=== PATIENT | male | born 1950 ===

== ENCOUNTER 2017-05-21 06:40 | Day surgery (SDC) | payer OTHER ==
[2017-05-13 12:45] VITALS: BMI 37.1
[2017-05-21] MEDS ORDERED: Nitroglycerin 50mg in D5W 50 MG/250 ML BOTTLE IV ONE (06:47)
[2017-05-21] MEDS ORDERED: Lidocaine 2% Inj (20ml) ONE (06:47)
[2017-05-21] MEDS ORDERED: Famotidine 20mg/50ml 20 MG/50 ML BAG IVPB ONE (06:54)
[2017-05-21] MEDS ORDERED: DiphenhydrAMINE 50 mg/ml Inj ONE (06:54)
[2017-05-21 07:22] LABS: ADD MANUAL DIFF? NO
[2017-05-21 07:26] LABS: BASO # 0.02 K/mm3 (0.0-2.0); BASO % 0.3 % (0.0-3.0); EOS # 0.3 (0.0-0.7); EOS % 4.2 % (1.5-5.0); GRAN # 3.43 (1.4-6.5); GRAN % 55.8 % (50.0-68.0); HEMATOCRIT 47.2 % (42.0-52.0); LYMPH % 32.6 % (22.0-35.0); MEAN CELL VOLUME 85.2 fL (80.0-105.0); MEAN CORPUSCULAR HEMOGLOBIN 29.4 pg (25.0-35.0); MEAN CORPUSCULAR HGB CONC 34.5 g/dl (31.0-37.0); MEAN PLATELET VOLUME 9.6 fl (7.0-11.0); MONO # 0.4 (0.1-0.6); MONO % 7.1 % (1.0-6.0); PLATELET COUNT 202 10^3/uL (120.0-450.0); RED CELL DISTRIBUTION WIDTH 14.4 % (11.5-14.5); WHITE BLOOD COUNT 6.2 10^3/ul (4.5-11.0)
[2017-05-21] MEDS ORDERED: Midazolam 2 MG/2 ML VIAL ONE (07:30)
[2017-05-21 07:36] LABS: INR 1.03 (0.93-1.08); PARTIAL THROMBOPLASTIN TIME 28.8 Seconds (23.7-30.8)
[2017-05-21 07:42] LABS: BLOOD UREA NITROGEN 15 mg/dL (7-21); CALCIUM 9.1 mg/dL (8.4-10.5); CARBON DIOXIDE 25 mmol/L (21-33); CHLORIDE 101 mmol/L (95-110); CHOLESTEROL 128 mg/dL (130-200); GFR AFRICAN-AMERICAN > 60; GLUCOSE,RANDOM 95 mg/dL (70-110); POTASSIUM 3.8 mmol/L (3.6-5.0); SODIUM 136 mmol/L (132-148)
[2017-05-21] MEDS ORDERED: Iodixanol 320 mg/ml 150 ml Bottle IV ONE (07:44)
[2017-05-21 07:52] VITALS: O2SAT 99
[2017-05-21] MEDS ORDERED: Iodixanol 320 MG/ML 100 ML BOTTLE IV ONE (08:17)
[2017-05-21] MEDS ORDERED: Iohexol 350mgl/ml 50 ML ONE (08:17)
[2017-05-21] MEDS ORDERED: Eptifibatide 20 mg/10mL Inj IVP ONE (08:18)
[2017-05-21] MEDS ORDERED: Potassium Chloride 20 mEq ER Tab PO STA (08:57)
[2017-05-21] MEDS ORDERED: Sodium Chloride 0.9% 1,000 ML IV SCH (09:00)
[2017-05-21 11:42] LABS: ADD MANUAL DIFF? NO
[2017-05-21 11:45] LABS: BASO # 0.01 K/mm3 (0.0-2.0); BASO % 0.2 % (0.0-3.0); EOS % 0.3 % (1.5-5.0); GRAN # 5.06 (1.4-6.5); GRAN % 83.3 % (50.0-68.0); LYMPH # 0.9 (1.2-3.4); MEAN CELL VOLUME 85.4 fL (80.0-105.0); MEAN CORPUSCULAR HEMOGLOBIN 29.3 pg (25.0-35.0); MEAN CORPUSCULAR HGB CONC 34.3 g/dl (31.0-37.0); MEAN PLATELET VOLUME 9.5 fl (7.0-11.0); MONO # 0.1 (0.1-0.6); MONO % 1.2 % (1.0-6.0); PLATELET COUNT 196 10^3/uL (120.0-450.0); RED CELL DISTRIBUTION WIDTH 14.3 % (11.5-14.5); WHITE BLOOD COUNT 6.1 10^3/ul (4.5-11.0)
[2017-05-21 11:52] LABS: BLOOD UREA NITROGEN 15 mg/dL (7-21); CALCIUM 9.2 mg/dL (8.4-10.5); CARBON DIOXIDE 25 mmol/L (21-33); CHLORIDE 100 mmol/L (98-107); GFR AFRICAN-AMERICAN > 60; GLUCOSE,RANDOM 149 mg/dL (70-110); SODIUM 136 mmol/L (132-148)
--- NOTE | 2017-05-21 12:01 | CARD ---
APPROVED REPORT EKG Measurement Heart [id number] <Conclusion> Normal sinus rhythm Possible Inferior infarct, age undetermined Abnormal ECG
[2017-05-21 12:16] VITALS: BP 111/67; PULSE 84; RESP 16; TEMP 98
--- NOTE | 2017-05-21 12:19 | CARD ---
APPROVED REPORT Procedure(s) performed: Left Heart Catheterization PTCA with Stenting of Dital Circumflex HISTORY The patient is a 66 year-old male with a history of : most recent EF: 58%. (EF Method: RADIONUCLIDE), renal failure without dialysis, previous diagnostic cath, previous PCI (The PCI date was 11/23/20092014), hypertension , dyslipidemia . INDICATION The indication(s) include : positive stress test, Infero-lateral Ischemia. CASE TECHNIQUE The patient was brought electively to the Cardiac Catheterization Laboratory in a fasting state and was prepped and draped in a sterile manner. The left wrist was infiltrated with 2% Lidocaine subcutaneous anesthesia. A 6 Fr Glidesheath (Radial) sheath was inserted into the left radial artery without difficulty. Coronary angiography was performed using coronary diagnostic catheters. The left coronary system was accessed and visualized with a Diagnostic ,5 Fr JL 3.5 catheter. The right coronary system was accessed and visualized with a Diagnostic ,5 Fr JR 4 catheter. The left ventricle was accessed and visualized with a 5 Fr Pigtail 145 (Angled) catheter. Left ventricular/Aortic Valve gradient assessed on pullback. Left ventriculogram was performed in [place]ON projection. Closure device was deployed with a Fr TR Band (Large) without any complications. The patient tolerated the procedure well and there were no complications associated with the procedure. Vessel Analysis The patient's coronary anatomy is co-dominant. The left main coronary artery is a large size vessel with diffuse calcification noted throughout this vessel and without significant stenosis. The left main bifurcates to the left anterior descending and circumflex. The left anterior descending artery is a medium size vessel with diffuse calcification noted throughout this vessel and without significant stenosis. There is a 30-40% stenosis in the mid segment. The first diagonal branch is a medium size vessel with diffuse calcification noted throughout this vessel and without significant stenosis. The circumflex artery is a large size vessel with diffuse calcification noted throughout this vessel and with significant stenosis. There is a 80% stenosis in the distal segment. Patent Stent in Mid Cx. The third obtuse marginal branch is a medium size vessel with diffuse calcification noted throughout this vessel and without significant stenosis. The right coronary artery is a large size vessel with diffuse calcification noted throughout this vessel and without significant stenosis. There is a 40% stenosis in the mid segment. Left Ventricle The left ventricle is Borderline enlarged in size with low normal contractility. The left ventricular ejection fraction is estimated to be 50-55%. The left ventricular end diastolic pressure is 20-25 mmHg. There was no gradient across the aortic valve upon pullback. PCI Technique Lesion Percutaneous coronary intervention was performed on the distal circumflex artery segment. The lesion stenosis prior to intervention was 80% with APARNA 2 flow. A 6 Fr JL 3.5 Guide Catheter was used to engage the ostium. BALLOON DILATION A Balloon catheter 2.5 x 10 mm Sprinter RX was inserted and inflated up to maría for seconds. STENT DEPLOYMENT A drug-eluting stent 2.75 x 14 mm Resolute EDUIN was inserted and inflated up to 16.00atm for 20seconds. Final angiography reveals 0 % stenosis with APARNA 3 flow. Conclusion Single Vessel CAD involving Distal CX, 80% Low Normal LV Ef-50-55%, EDP-20-25 Recommendations Daily ASA with Plavix for at least one year Aggressive Medical TherapyCardiac Risk Reduction Program Weight Loss Reduction Program Add Diuretics low as tolerated. CC; DRs. Stevan Ibarra/ Allison
[2017-05-21] MEDS ORDERED: Bacitracin 500 Units/gm Oint Foilpak UD ONE (13:13)
== END 2017-05-21 15:19 | disposition home or self-care (01) ==
LOC: CATH 06:40 → 2RSO 08:56 → CATH 15:19
PROVIDERS: ATTEND Internal Medicine Cardiovascular Disease
DX: I25.10 Atherosclerotic heart disease of native coronary artery without angina pectoris (principal); E78.00 Pure hypercholesterolemia, unspecified; I12.9 Hypertensive chronic kidney disease with stage 1 through stage 4 chronic kidney disease, or unspecified chronic kidney disease; N18.9 Chronic kidney disease, unspecified; E78.5 Hyperlipidemia, unspecified
CPT/HCPCS: 36415; 80048; 80061; 85025; 85175; 85610; 85730; 86850; 86900; 93005; 93458; 99152; 99153; C1725; C1769 ×2; C1874; C1887 ×3; C9600; J1200; J1327; J1644 ×2; J1940 ×2; J2250; J2930; J3010; J7040 ×2; Q9967

== ENCOUNTER 2017-07-15 12:52 | Inpatient (IN) | payer OTHER ==
[2017-07-15 12:58] VITALS: BMI 36.0
[2017-07-15] MEDS ORDERED: Sodium Chloride 0.9% 1,000 ML IV STA (13:23)
[2017-07-15] MEDS ORDERED: cefTRIAXone 1 gm 1 GM/100 ML BAG IV STA (13:25)
--- NOTE | 2017-07-15 13:35 | ED PDOC ---
Arrival/HPI - General Chief Complaint: Male Genitourinary Time Seen by Provider: 07/15/17 13:06 Historian: Patient - History of Present Illness Narrative History of Present Illness (Text): 07/15/17 13:18 A 66 year old male, whose past medical history includes renal stones, hypertension, CAD, and cardiac stent, presents to the emergency department complaining of right-side back pain and dysuria for 2 days. Patient reports yesterday he visited a doctor for his symptoms. He was prescribed macrobid but notes no relief. Patient mentions he has also been taking Pyridium. Patient notes fever that began yesterday, but denies of any nausea, vomiting, diarrhea, abdominal pain, shortness of breath, cough, chest pain, hematuria, groin pain, or any other complaints. PMD: Dr. Ibarra Time/Duration: < week (2 days) Symptom Onset: Sudden Symptom Course: Unchanged Activities at Onset: Rest, Light Context: Home Past Medical History - Provider Review Nursing Documentation Reviewed: Yes - Infectious Disease Hx of Infectious Diseases: None - Cardiac Hx Cardiac Disorders: Yes Hx VT: Yes Hx Hypertension: Yes Hx Pacemaker: No Other/Comment: 3 stents - Pulmonary Hx Respiratory Disorders: No - Neurological Hx Neurological Disorder: No Hx Paralysis: No - HEENT Hx HEENT Disorder: Yes Other/Comment: history of bilateral corneal transplants 2007. glasses - Renal Hx Kidney Stones: Yes (2009) - Endocrine/Metabolic Hx Endocrine Disorders: No - Hematological/Oncological Hx Blood Transfusions: No Hx Blood Transfusion Reaction: No - Integumentary Hx Dermatological Disorder: No - Musculoskeletal/Rheumatological Hx Musculoskeletal Disorders: Yes Hx Arthritis: Yes (L shoulder) - Gastrointestinal Hx Gastrointestinal Disorders: No - Genitourinary/Gynecological Hx Genitourinary Disorders: Yes (UTI 06/25/15) - Psychiatric Hx Emotional Abuse: No Hx Physical Abuse: No Hx Substance Use: No - Surgical History Hx Cardiac Catheterization: Yes Hx Coronary Stent: Yes (04/2017, x3) Other/Comment: corneal transplant - Anesthesia Hx Anesthesia: Yes Hx Anesthesia Reactions: No Hx Malignant Hyperthermia: No - Suicidal Assessment Feels Threatened In Home Enviroment: No Family/Social History - Physician Review Nursing Documentation Reviewed: Yes Family/Social History: No Known Family HX Smoking Status: Never Smoked Hx Alcohol Use: No Hx Substance Use: No Allergies/Home Meds Allergies/Adverse Reactions: Allergies shellfish derived Allergy (Intermediate, Verified 07/15/17 12:57) GENERALIZED RASH Home Medications: Home Meds Medication Instructions Recorded Confirmed Aspirin [Aspirin Chewable] 81 mg PO QAM 08/21/16 07/15/17 Atorvastatin [Lipitor] 40 mg PO QPM 08/21/16 07/15/17 Clopidogrel [Plavix] 75 mg PO QAM 08/21/16 07/15/17 Losartan [Cozaar] 25 mg PO QAM 08/21/16 07/15/17 Metoprolol Tartrate 25 mg PO QAM 08/21/16 07/15/17 Nckpr-0-Nqge Ethyl Esters 1 GM 2 gm PO BID 08/21/16 07/15/17 [Lovaza] Ciprofloxacin [Cipro] 250 mg PO BID 07/15/17 07/15/17 Phenazopyridine [Pyridium] 100 mg PO DAILY 07/15/17 07/15/17 Review of Systems - Physician Review All systems were reviewed & negative as marked: Yes - Review of Systems Constitutional: Fevers (began yesterday). absent: Night Sweats Respiratory: absent: SOB, Cough Cardiovascular: absent: Chest Pain Gastrointestinal: absent: Abdominal Pain, Diarrhea, Nausea, Vomiting Genitourinary Male: Dysuria. absent: Hematuria, Urinary Output Changes, Other ( no groin pain) Musculoskeletal: Back Pain (left-side back pain) Neurological: Headache (mild not sudden onset) Physical Exam Vital Signs Reviewed: Yes Vital Signs Temp Pulse Resp BP Pulse Ox 07/15/17 15:16 99 H 18 130/79 95 07/15/17 13:09 101.7 F H 07/15/17 13:02 100.1 F H 111 H 19 132/86 95 Temperature: Afebrile Blood Pressure: Normal Pulse: Tachycardic Respiratory Rate: Normal Appearance: Positive for: Well-Appearing Pain Distress: None Mental Status: Positive for: Alert and Oriented X 3 - Systems Exam Head: Present: Atraumatic, Normocephalic Pupils: Present: PERRL Conjunctiva: Present: Normal Mouth: Present: Moist Mucous Membranes Pharnyx: Present: Normal. No: ERYTHEMA, EXUDATE, TONSILS ENLARGED Neck: Present: Normal Range of Motion Respiratory/Chest: Present: Clear to Auscultation, Good Air Exchange Cardiovascular: Present: Regular Rate and Rhythm, Normal S1, S2. No: Murmurs Abdomen: Present: Normal Bowel Sounds. No: Tenderness, Distention, Peritoneal Signs Genitourinary Male: No: Circumcised Penis, Testicle Tenderness Back: Present: Normal Inspection Upper Extremity: Present: Normal Inspection. No: Cyanosis, Edema Lower Extremity: Present: Normal Inspection. No: Edema Neurological: Present: GCS=15, CN II-XII Intact, Speech Normal Skin: Present: Warm, Dry, Normal Color. No: Rashes Psychiatric: Present: Alert, Oriented x 3, Normal Insight, Normal Concentration Medical Decision Making ED Course and Treatment: 07/15/17 13:25 Impression: 66 year old male with left-side back pain and dysuria, already on abx. Exam is unremarkable. Patient with fever of 101.7. Plan: -- EKG -- Abd/Pelvis CT -- Chest X-ray -- Labs -- Blood Culture -- Urine Culture -- Tylenol -- Rocephin -- IV Fluids -- Urinalysis -- Reassess and disposition Prior Visits: Notes and results from previous visits were reviewed. 06/25/2015 for burning discomfort to penis/dysuria and some lower back /flank discomfort. Patient was admitted for observation. Progress Notes: 07/15/17 14:13 EKG: Ordered, reviewed, and independently interpreted the EKG. Rate : 98 BPM Rhythm : NSR Interpretation : No ST-segment elevations or depressions, no T-wave inversions, normal intervals. Comparison : No previous EKG for comparison. 07/15/2017 14:39 Abd/Pelvis CT FINDINGS: LOWER THORAX: 7 mm nodule in the right lower lobe in the azygoesophageal recess. LIVER: Unremarkable. No gross lesion or ductal dilatation. GALLBLADDER AND BILE DUCTS: Unremarkable PANCREAS: Unremarkable. No gross lesion or ductal dilatation. SPLEEN: Unremarkable. ADRENALS: Unremarkable. No mass. KIDNEYS AND URETERS: Unremarkable. No hydroneprosis. No solid mass. VASCULATURE: Unremarkable. No aortic aneurysm. BOWEL: Unremarkable. No obstruction. No gross mural thickening. APPENDIX: Unremarkable. Normal appendix. PERITONEUM: Unremarkable. No free fluid. No free air. LYMPH NODES: Unremarkable. No enlarged lymph nodes. BLADDER: Unremarkable. REPRODUCTIVE: The prostate is enlarged measuring 6 x 7 cm. BONES: no acute fracture. OTHER FINDINGS: None. IMPRESSION: No evidence of renal or ureteral stone. Enlarged prostate. 7 mm nodule in the right lower lobe in the azygoesophageal recess. Dictated By: Jcarlos Katz MD 07/15/2017 14:39 Chest X-Ray FINDINGS: LUNGS: No active pulmonary disease. No infiltrate PLEURA: No significant pleural effusion identified. No pneumothorax apparent. CARDIOVASCULAR: Normal. OSSEOUS STRUCTURES: Thoracic spondylosis VISUALIZED UPPER ABDOMEN: Normal. OTHER FINDINGS: None. IMPRESSION: No active disease. Specifically no infiltrate Dictator : Ctay Camargo V. 07/15/17 15:30 Patient with noted history with fever of 101.7 and 3/4 SIRS criteria; labs with WBC of 16.4K and lactic acid of 1.9, so does not fit code sepsis criteria. Will need iv antibiotics, having worsened on oral antibiotics. Labs show UTI as well. Spoke with Dr. Greenwood, who said to admit to the hospitalist service. Discussed with Dr. Horn for admission to the hospitalist service. - Lab Interpretations Lab Results: 07/15/17 13:30 07/15/17 13:30 Lab Results 07/15/17 13:30: Sodium 136, Chloride 97 L, Potassium 3.9, Carbon Dioxide 28, Anion Gap 15, BUN 9, Creatinine 0.9, Est GFR ( Amer) > 60, Est GFR (Non- Af Amer) > 60, Random Glucose 131 H, Calcium 9.5, Phosphorus 2.9, Magnesium 2.0 , Total Bilirubin 1.2, AST 24, ALT 42, Alkaline Phosphatase 58, Lactate Dehydrogenase 357, Total Creatine Kinase 82, Troponin I < 0.01, Total Protein 7.4, Albumin 4.4, Globulin 2.9, Albumin/Globulin Ratio 1.5, Lipase 47 07/15/17 13:30: pO2 25 L, VBG pH 7.36, VBG pCO2 55.0, VBG HCO3 31.1 H, VBG Total CO2 32.8 H, VBG O2 Sat (Calc) 56.7, VBG Base Excess 3.8 H, VBG Potassium 4.1, Sodium 135.0, Chloride 97.0 L, Glucose 137 H, Lactate 1.9, FiO2 21.0, Venous Blood Potassium 4.1 07/15/17 13:30: Urine Color Yellow, Urine Appearance Sl cloudy, Urine pH 7.0, Ur Specific [place] <= 1.005, Urine Protein Negative, Urine Glucose (UA) Negative, Urine Ketones Negative, Urine Blood Moderate H, Urine Nitrate Positive H, Urine Bilirubin Negative, Urine Urobilinogen 1.0 H, Ur Leukocyte Esterase Moderate H, Urine RBC 1 - 3, Urine WBC 15 - 20, Ur Epithelial Cells 6 - 8, Urine Bacteria Trace 07/15/17 13:30: PT 11.6, INR 1.07, APTT 31.6 H 07/15/17 13:30: WBC 16.4 H D, RBC 5.61, Hgb 16.6, Hct 48.0, MCV 85.6, MCH 29.6, MCHC 34.6, RDW 13.8, Plt Count 184, MPV 9.7, Gran % 85.0 H, Lymph % (Auto) 7.0 L , [place] % (Auto) 7.8 H, Eos % (Auto) 0.1 L, Baso % (Auto) 0.1, Gran # 13.92 H, Lymph # 1.1 L, [place] # 1.3 H, Eos # 0.0, Baso # 0.02, ESR 4 I have reviewed the lab results: Yes - RAD Interpretation Radiology Orders: 07/15/17 13:25 ABD & PELVIS W/O PO OR IV CONT [CT] Stat CHEST TWO VIEWS (PA/LAT) [RAD] Stat - Medication Orders Current Medication Orders: Aspirin (Aspirin Chewable) 81 mg PO QAM [facility] Atorvastatin Calcium (Lipitor) 40 mg PO QPM [facility] Clopidogrel Bisulfate (Plavix) 75 mg PO QAM [facility] Losartan Potassium (Cozaar) 25 mg PO QAM [facility] Metoprolol Tartrate (Lopressor) 25 mg PO QAM [facility] Mrqdc-4-Qvho Ethyl Esters (Lovaza) 2 gm PO BID [facility] Phenazopyridine HCl (Pyridium) 100 mg PO DAILY [facility] Discontinued Medications Acetaminophen (Tylenol 325mg Tab) 975 mg PO STAT STA Stop: 07/15/17 13:24 Last Admin: 07/15/17 13:48 Dose: 975 mg Sodium Chloride (Sodium Chloride 0.9%) 1,000 mls @ 999 mls/hr IV .Q1H1M STA Stop: 07/15/17 14:23 Last Admin: 07/15/17 13:48 Dose: 999 mls/hr Ceftriaxone Sodium (Rocephin 1 Gram Ivpb) 1 gm in 100 mls @ 200 mls/hr IV ONCE STA PRN Reason: Protocol Stop: 07/15/17 13:54 Last Admin: 07/15/17 13:49 Dose: 200 mls/hr Non-Formulary Medication (Metoprolol Tartrate [Metoprolol Tartrate]) 25 mg PO QAM GABRIEL - Scribe Statement The provider has reviewed the documentation as recorded by the Winsome Bolanos Provider Scribe Attestation: All medical record entries made by the Winsome were at my direction and personally dictated by me. I have reviewed the chart and agree that the record accurately reflects my personal performance of the history, physical exam, medical decision making, and the department course for this patient. I have also personally directed, reviewed, and agree with the discharge instructions and disposition. Disposition/Present on Arrival - Present on Arrival Any Indicators Present on Arrival: No History of DVT/PE: No History of Uncontrolled Diabetes: No Urinary Catheter: No History of Decub. Ulcer: No History Surgical Site Infection Following: None - Disposition Have Diagnosis and Disposition been Completed?: Yes Diagnosis: Urinary tract infection, Sepsis, Fever, Leukocytosis Disposition: HOSPITALIZED Disposition Time: 14:30 Patient Plan: Admission Condition: FAIR
[2017-07-15 13:54] LABS: VENOUS BLOOD GAS BASE EXCESS 3.8 mmol/L (0.0-2.0); VENOUS BLOOD PH 7.36 (7.32-7.43)
[2017-07-15 14:05] LABS: ALB/GLOB RATIO 1.5 (1.1-1.8); ALKALINE PHOSPHATASE 58 U/L (38-133); ALT/SGPT 42 U/L (7-56); AST/SGOT 24 U/L (15-59); BILIRUBIN,TOTAL 1.2 mg/dL (0.2-1.3); BLOOD UREA NITROGEN 9 mg/dL (7-21); CALCIUM 9.5 mg/dL (8.4-10.5); CARBON DIOXIDE 28 mmol/L (21-33); CHLORIDE 97 mmol/L (98-107); GFR AFRICAN-AMERICAN > 60; GLUCOSE,RANDOM 131 mg/dL (70-110); INR 1.07 (0.93-1.08); LIPASE 47 U/L (23-300); PARTIAL THROMBOPLASTIN TIME 31.6 Seconds (23.7-30.8); PHOSPHOROUS 2.9 mg/dL (2.5-4.5); POTASSIUM 3.9 mmol/L (3.6-5.0); SODIUM 136 mmol/L (132-148); TOTAL PROTEIN 7.4 g/dL (5.8-8.3)
[2017-07-15 14:11] LABS: URINE BILIRUBIN NEGATIVE (NEGATIVE); URINE BLOOD MODERATE (NEGATIVE); URINE GLUCOSE (UA) NEGATIVE (NEGATIVE); URINE KETONE NEGATIVE (NEGATIVE); URINE LEUKOCYTE ESTERASE MODERATE Leu/uL (NEGATIVE); URINE PROTEIN NEGATIVE mg/dL (<30 mg/dL)
[2017-07-15 14:13] LABS: URINE APPEARANCE SL CLOUDY (CLEAR); URINE COLOR YELLOW (YELLOW)
[2017-07-15 14:15] LABS: URINE BACTERIA TRACE (NEG); URINE WBC 15 - 20 /hpf (0-6)
[2017-07-15 14:21] LABS: BASO # 0.02 K/mm3 (0.0-2.0); BASO % 0.1 % (0.0-3.0); EOS % 0.1 % (1.5-5.0); GRAN # 13.92 (1.4-6.5); LYMPH # 1.1 (1.2-3.4); MEAN CELL VOLUME 85.6 fl (80.0-105.0); MEAN CORPUSCULAR HEMOGLOBIN 29.6 pg (25.0-35.0); MEAN CORPUSCULAR HGB CONC 34.6 g/dl (31.0-37.0); MEAN PLATELET VOLUME 9.7 fl (7.0-11.0); MONO # 1.3 (0.1-0.6); MONO % 7.8 % (1.0-6.0); RED CELL DISTRIBUTION WIDTH 13.8 % (11.5-14.5); WHITE BLOOD COUNT 16.4 10^3/ul (4.5-11.0)
[2017-07-15 14:22] LABS: TROPONIN I < 0.01 ng/mL
--- NOTE | 2017-07-15 14:41 | RAD ---
HISTORY: fever COMPARISON: CT chest abdomen and pelvis 06/07/2013 TECHNIQUE: Chest PA and lateral FINDINGS: LUNGS: No active pulmonary disease. No infiltrate PLEURA: No significant pleural effusion identified. No pneumothorax apparent. CARDIOVASCULAR: Normal. OSSEOUS STRUCTURES: Thoracic spondylosis VISUALIZED UPPER ABDOMEN: Normal. OTHER FINDINGS: None. IMPRESSION: No active disease. Specifically no infiltrate
--- NOTE | 2017-07-15 14:41 | CT ---
PROCEDURE: CT Abdomen and Pelvis without intravenous contrast HISTORY: R flank pain; ho renal stones; fever COMPARISON: None. TECHNIQUE: Without contrast.. Contrast Dose: Radiation dose: Total exam DLP = 1264 mGy-cm. This CT exam was performed using one or more of the following dose reduction techniques: Automated exposure control, adjustment of the mA and/or kV according to patient size, and/or use of iterative reconstruction technique. FINDINGS: LOWER THORAX: 7 mm nodule in the right lower lobe in the azygoesophageal recess LIVER: Unremarkable. No gross lesion or ductal dilatation. GALLBLADDER AND BILE DUCTS: Unremarkable. PANCREAS: Unremarkable. No gross lesion or ductal dilatation. SPLEEN: Unremarkable. ADRENALS: Unremarkable. No mass. KIDNEYS AND URETERS: Unremarkable. No hydronephrosis. No solid mass. VASCULATURE: Unremarkable. No aortic aneurysm. BOWEL: Unremarkable. No obstruction. No gross mural thickening. APPENDIX: Unremarkable. Normal appendix. PERITONEUM: Unremarkable. No free fluid. No free air. LYMPH NODES: Unremarkable. No enlarged lymph nodes. BLADDER: Unremarkable. REPRODUCTIVE: The prostate is enlarged measuring 6 x 7 cm BONES: No acute fracture. OTHER FINDINGS: None. IMPRESSION: No evidence of renal or ureteral stone. Enlarged prostate 7 mm nodule in the right lower lobe in the azygoesophageal recess
--- NOTE | 2017-07-15 16:45 | CP.PCM.HP ---
History of Present Illness - History of Present Illness History of Present Illness: CC: Burning with Urination HPI: Mr. Alanis is a 66 year old male with a past medical history significant for nephrolithiasis, HTN, HLD, CAD with 3 EDUIN who presented with a chief complaint of burning with urination for three days duration. Patient states that when he awoke on Thursday, his first void of the day was associated with "extreme burning" at the tip of his penis. Later that day at work, patient states that he began to experience lower back pain, urinary urgency, frequency and continued burning sensation. These symptoms continued throughout Thursday night, preventing patient from sleeping, so patient went to see his PMD of Thursday and was sent home with Ciprofloxacin and Phenazopyridine, which was confirmed with prescription bottles in the ED. Patient reports that he experienced no relief of his symptoms with this regimen and decided to come in to the ED today for further evaluation. In the ED, patient was found to have a leukocytosis of 16.4 on CBC and a UA showed moderate blood, positive nitrates, moderate leukocyte esterase, 15-20 WBC's and trace amounts of bacteria. A CT abdomen/pelvis done in the ED showed no nephrolithiasis, an enlarged prostate and a 7mm pulmonary nodule in the RLL in the azygoesphageal recess. Currently, patient reports that his pain has resolved a moderate amount. Patient endorses low back pain, urinary frequency, urinary urgency and burning with urination. Patient denies fever, chills, weight loss, headache, changes in vision, dysphagia, neck stiffness, chest pain, palpitations, shortness of breath , cough, pleurisy, abdominal pain, N/V, diarrhea, constipation, numbness/ tingling/weakness of any extremity, hematuria or any new rashes. PMH: Nephrolithiasis, HTN, HLD, CAD with 3 EDUIN (latest in 05/[address] 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 Allergies: Shrimp Home Medications: As per MAR Present on Admission - Present on Admission Any Indicators Present on Admission: No Review of Systems - Review of Systems Review of Systems: Please refer to HPI Past Patient History - Infectious Disease Hx of Infectious Diseases: None - Past Social History Smoking Status: Never Smoked - CARDIAC Hx Cardiac Disorders: Yes Hx Heart Attack: Yes Hx Hypertension: Yes Hx Pacemaker: No Other/Comment: 3 stents - PULMONARY Hx Respiratory Disorders: No - NEUROLOGICAL Hx Neurological Disorder: No Hx Paralysis: No - HEENT Hx HEENT Problems: Yes Other/Comment: history of bilateral corneal transplants 2007. glasses - RENAL Hx Kidney Stones: Yes (2009) - ENDOCRINE/METABOLIC Hx Endocrine Disorders: No - HEMATOLOGICAL/ONCOLOGICAL Hx Blood Transfusions: No Hx Blood Transfusion Reaction: No - INTEGUMENTARY Hx Dermatological Problems: No - MUSCULOSKELETAL/RHEUMATOLOGICAL Hx Musculoskeletal Disorders: Yes Hx Arthritis: Yes (L shoulder) - GASTROINTESTINAL Hx Gastrointestinal Disorders: No - GENITOURINARY/GYNECOLOGICAL Hx Genitourinary Disorders: Yes (UTI 06/25/15) - PSYCHIATRIC Hx Emotional Abuse: No Hx Physical Abuse: No Hx Substance Use: No - SURGICAL HISTORY Hx Cardiac Catheterization: Yes Hx Coronary Stent: Yes (04/2017, x3) Other/Comment: corneal transplant - ANESTHESIA Hx Anesthesia: Yes Hx Anesthesia Reactions: No Hx Malignant Hyperthermia: No Meds Allergies/Adverse Reactions: Allergies Allergy/AdvReac Type Severity Reaction Status Date / Time shellfish derived Allergy Intermediate GENERALIZED Verified 07/15/17 12:57 RASH Physical Exam - Constitutional Appears: Non-toxic, No Acute Distress - Head Exam Head Exam: ATRAUMATIC, NORMOCEPHALIC - Eye Exam Eye Exam: EOMI, Normal appearance, PERRL - ENT Exam ENT Exam: Mucous Membranes Moist, Normal Exam, Normal Oropharynx - Neck Exam Neck exam: Positive for: Full Rom, Normal Inspection. Negative for: Lymphadenopathy, Tenderness - Respiratory Exam Respiratory Exam: Clear to Auscultation Bilateral, NORMAL BREATHING PATTERN. absent: Chest Wall Tenderness, Rales, Rhonchi, Wheezes, Respiratory Distress - Cardiovascular Exam Cardiovascular Exam: REGULAR RHYTHM, RRR, +S1, +S2. absent: Tachycardia, Diastolic murmur, Systolic Murmur - GI/Abdominal Exam GI & Abdominal Exam: Normal Bowel Sounds, Soft. absent: Distended, Firm, Guarding, Tenderness - Exam Exam: Bladder Distension - Extremities Exam Extremities exam: Positive for: normal capillary refill, normal inspection, pedal pulses present. Negative for: calf tenderness, pedal edema - Back Exam Back exam: absent: CVA tenderness (L), CVA tenderness (R), paraspinal tenderness , vertebral tenderness - Neurological Exam Neurological exam: Alert, Normal Gait, Oriented x3 - Psychiatric Exam Psychiatric exam: Normal Affect, Normal Mood - Skin Skin Exam: Dry, Intact, Normal Color, Warm Results - Vital Signs Recent Vital Signs: Last Vital Signs Temp 99.3 F 07/15/17 16:06 Pulse 99 H 07/15/17 15:16 Resp 18 07/15/17 15:16 BP 130/79 07/15/17 15:16 Pulse Ox 95 07/15/17 15:16 - Labs Result Diagrams: 07/15/17 13:30 07/15/17 13:30 - EKG Data EKG Interpreted by: Myself EKG shows normal: Sinus rhythm Assessment & Plan - Assessment and Plan (Free Text) Assessment: 66 year old male with a past medical history significant for nephrolithiasis, HTN, HLD, CAD with 3 EDUIN who presented with a chief complaint of burning with urination for three days duration Plan: 1. Sepsis -SIRS Criteria: Leukocytosis (16.4), febrile (Rectal temperature of 101.7), and tachycardia (111 bpm) -Source of Infection: UTI per UA -Lactic Acid: 1.9 -Continue Rocephin 1gm IVP Q24H (received one dose in ED) -Given one time infusion of 3000ml NS over 30 minutes (Sepsis protocol) -IVF: Normal Saline at 100mls/hr to be given after infusion, as most recent ECHO in 01/09 showed an EF of 51% -Tylenol 650mg PO Q6H PRN for fever over 100.4 -continue Pyridium 100mg PO daily -CRP elevated at >15.00 -Procal, blood and urine cultures pending -Strain urine for stones as indicated -will continue to monitor for leukocytosis and trend fevers with daily CBC's and vital signs Q4H, respectively 2. Prostatic Enlargement -CT abdomen/pelvis showing prostate measuring 6x7cm with no hydronephrosis -Urology consulted, appreciate all recommendations 3. CAD -[address] with the latest in 05/[address] Dolan -continue ASA and Plavix -heart healthy diet 4. HTN -continue Cozaar and Lopressor 5. HLD -continue Lipitor and Lovaza 6. GI/DVT Prophylaxis -Protonix/Heparin Patient seen and case discussed in detail with attending, Dr. Horn. - Date & Time Date: 07/15/17 Time: 16:48 Decision To Admit - Pt Status Changed To: Hospital Disposition Of: Inpatient Admission - Admit Certification Admit to Inpatient:: After my assessment, the patient will require hospitalization for at least two midnights. This is because of the severity of symptoms shown, intensity of services needed, and/or the medical risk in this patient being treated as an outpatient. - . Bed Request Type: Med/Surg
--- NOTE | 2017-07-15 17:04 | CARD ---
APPROVED REPORT EKG Measurement Heart [id number] <Conclusion> Normal sinus rhythm Normal ECG
[2017-07-15] MEDS: cefTRIAXone 1 gm 1 GM/100 ML BAG IVPB SCH (17:05)
[2017-07-15] MEDS: Omega-3-Acid Ethyl Esters 1 GM Cap PO SCH (17:07)
[2017-07-15] MEDS: Sodium Chloride 0.9% 1,000 ML IV SCH (17:07)
[2017-07-15] MEDS ORDERED: Pneumococcal 23-Valent Vaccine IM ONE (22:39)
[2017-07-16] MEDS: Sodium Chloride 0.9% 1,000 ML IV SCH ×3 (04:00→21:43)
[2017-07-16 07:00] LABS: BASO # 0.01 K/mm3 (0.0-2.0); BASO % 0.1 % (0.0-3.0); EOS % 0.3 % (1.5-5.0); GRAN # 11.68 (1.4-6.5); GRAN % 79.6 % (50.0-68.0); HEMATOCRIT 45.9 % (42.0-52.0); LYMPH # 1.9 (1.2-3.4); MEAN CELL VOLUME 86.4 fl (80.0-105.0); MEAN CORPUSCULAR HGB CONC 33.6 g/dl (31.0-37.0); MEAN PLATELET VOLUME 9.6 fl (7.0-11.0); RED CELL DISTRIBUTION WIDTH 14.2 % (11.5-14.5); WHITE BLOOD COUNT 14.7 10^3/ul (4.5-11.0)
[2017-07-16 07:10] LABS: ALB/GLOB RATIO 1.3 (1.1-1.8); ALKALINE PHOSPHATASE 48 U/L (38-133); ALT/SGPT 37 U/L (7-56); AST/SGOT 19 U/L (15-59); BILIRUBIN,TOTAL 0.8 mg/dL (0.2-1.3); BLOOD UREA NITROGEN 7 mg/dL (7-21); CALCIUM 8.5 mg/dL (8.4-10.5); CARBON DIOXIDE 26 mmol/L (21-33); CHLORIDE 103 mmol/L (98-107); GFR AFRICAN-AMERICAN > 60; GLUCOSE,RANDOM 99 mg/dL (70-110); SODIUM 138 mmol/L (132-148); TOTAL PROTEIN 6.5 g/dL (5.8-8.3)
[2017-07-16] MEDS: Pantoprazole 40 mg EC Tab PO SCH (08:14)
[2017-07-16] MEDS ORDERED: Non Formulary Medication (Metoprolol Tartrate [Metoprolol Tartrate] 25 MG) PO SCH (10:00)
[2017-07-16] MEDS: Omega-3-Acid Ethyl Esters 1 GM Cap PO SCH ×2 (10:04→17:48)
[2017-07-16] MEDS: cefTRIAXone 1 gm 1 GM/100 ML BAG IVPB SCH (10:09)
[2017-07-16] MEDS ORDERED: Iohexol 350 MG/100 ML VIAL ONE (10:43)
--- NOTE | 2017-07-16 12:39 | CT ---
PROCEDURE: CT Chest with contrast HISTORY: eval nodule COMPARISON: CT abdomen/ pelvis 07/15/[address] chest/abdomen/ pelvis 06/07/2013 TECHNIQUE: Contiguous axial images were obtained through the chest with intravenous contrast enhancement. Sagittal and coronal reconstructions were performed. IV contrast: 100 mL Omnipaque 350 Radiation dose (DLP): 719.32 mGy-cm. This CT exam was performed using one or more of the following dose reduction techniques: Automated exposure control, adjustment of the mA and/or kV according to patient size, and/or use of iterative reconstruction technique. FINDINGS: LUNGS: No pulmonary infiltrate. 8 mm medial right lower lobe nodule (series 4, image 82) unchanged since 06/07/2013. Calcified granuloma left lower lobe (series 4, image 89 close) unchanged from prior examination. 4 mm nodule superior segment right lower lobe (series 4, image 60 close) unchanged from prior examination. No new pulmonary mass. MEDIASTINUM: Unremarkable thoracic aorta. No aneurysm or dissection. Normal sized heart. Main pulmonary artery unremarkable. No vascular congestion. No significant lymphadenopathy. Old calcified left hilar and sub carinal lymph nodes. PLEURA: No pleural fluid. No pneumothorax. BONES: No fracture. No destructive lesion. UPPER ABDOMEN: Incidental small splenule adjacent to the anterior border of the spleen, 2.4 cm. OTHER FINDINGS: None. IMPRESSION: 8 mm nodule medial right lower lobe unchanged since 2012. Additional 4 mm nodule in superior segment right lower lobe, unchanged. Calcified granuloma left lower lobe. Calcified mediastinal and left hilar lymph nodes.
--- NOTE | 2017-07-16 14:28 | CP.PCM.PN ---
<ELX VASQUEZ - Last Filed: 07/16/17 14:25> Subjective - Date & Time of Evaluation Date of Evaluation: 07/16/17 Time of Evaluation: 14:25 - Subjective Subjective: MEDICINE PROGRESS NOTE: Pt seen and assessed at bedside. Pt reports feeling "much better" than he was yesterday and that his symptoms of burning with urination, urinary urgency and urinary frequency have almost completely resolved. Pt denies any headache, dizziness, changes in his vision, fever, chest pain, shortness of breath, cough , abdominal pain, N/V,diarrhea, constipation, or any urinary symptoms. Objective - Vital Signs/Intake and Output Vital Signs (last 24 hours): Temp Pulse Resp BP Pulse Ox 99.4 F 75 18 113/74 95 07/16/17 08:52 07/16/17 10:05 07/16/17 08:52 07/16/17 10:05 07/16/17 08:52 Intake and Output: 07/16/17 07/16/17 06:59 18:59 Intake Total 120 1600 Output Total 1850 1800 Balance -1730 -200 - Medications Medications: Current Medications Acetaminophen (Tylenol 325mg Tab) 650 mg PO Q6H PRN PRN Reason: Fever >100.4 F Aspirin (Aspirin Chewable) 81 mg PO QAM [facility] Last Admin: 07/16/17 10:05 Dose: 81 mg Atorvastatin Calcium (Lipitor) 40 mg PO QPM [facility] Last Admin: 07/15/17 17:07 Dose: 40 mg Clopidogrel Bisulfate (Plavix) 75 mg PO QAM [facility] Last Admin: 07/16/17 10:08 Dose: 75 mg Heparin Sodium (Porcine) (Heparin) 5,000 units SC Q12 [facility] PRN Reason: Protocol Last Admin: 07/16/17 10:08 Dose: 5,000 units Ceftriaxone Sodium (Rocephin 1 Gram Ivpb) 1 gm in 100 mls @ 100 mls/hr IVPB DAILY [facility] PRN Reason: Protocol Last Admin: 07/16/17 10:09 Dose: 100 mls/hr Sodium Chloride (Sodium Chloride 0.9%) 1,000 mls @ 100 mls/hr IV .Q10H [facility] Last Admin: 07/16/17 04:00 Dose: 100 mls/hr Ibuprofen (Motrin Tab) 400 mg PO Q6H PRN PRN Reason: Pain, moderate (4-7) Losartan Potassium (Cozaar) 25 mg PO QAM [facility] Last Admin: 07/16/17 10:04 Dose: 25 mg Metoprolol Tartrate (Lopressor) 25 mg PO QAM [facility] Last Admin: 07/16/17 10:05 Dose: 25 mg [id number]-[id number] Ethyl Esters (Lovaza) 2 gm PO BID [facility] Last Admin: 07/16/17 10:04 Dose: 2 gm Pantoprazole Sodium (Protonix Ec Tab) 40 mg PO ACB [facility] Last Admin: 07/16/17 08:14 Dose: 40 mg Phenazopyridine HCl (Pyridium) 100 mg PO DAILY [facility] Last Admin: 07/16/17 10:04 Dose: 100 mg - Labs Labs: 07/16/17 06:30 07/16/17 06:30 PT 11.6 Seconds (9.9-11.8) 07/15/17 13:30 INR 1.07 (0.93-1.08) 07/15/17 13:30 APTT 31.6 Seconds (23.7-30.8) H 07/15/17 13:30 - Constitutional Appears: Non-toxic, No Acute Distress - Head Exam Head Exam: ATRAUMATIC, NORMOCEPHALIC - Eye Exam Eye Exam: EOMI, Normal appearance, PERRL - ENT Exam ENT Exam: Mucous Membranes Moist, Normal Exam, Normal Oropharynx - Neck Exam Neck Exam: Full ROM, Normal Inspection. absent: Lymphadenopathy, Tenderness - Respiratory Exam Respiratory Exam: Clear to Ausculation Bilateral, NORMAL BREATHING PATTERN. absent: Rales, Rhonchi, Wheezes, Respiratory Distress - Cardiovascular Exam Cardiovascular Exam: REGULAR RHYTHM, RRR, +S1, +S2. absent: Tachycardia, Diastolic murmur, Murmur - GI/Abdominal Exam GI & Abdominal Exam: Soft, Normal Bowel Sounds. absent: Distended, Firm, Guarding, Tenderness - Exam Exam: absent: Bladder Distension - Extremities Exam Extremities Exam: Normal Capillary Refill, Normal Inspection. absent: Calf Tenderness, Pedal Edema - Back Exam Back Exam: absent: CVA tenderness (L), CVA tenderness (R), paraspinal tenderness , rash noted, vertebral tenderness - Neurological Exam Neurological Exam: Alert, Awake, Normal Gait, Oriented x3 - Psychiatric Exam Psychiatric exam: Normal Affect, Normal Mood - Skin Skin Exam: Dry, Intact, Normal Color, Warm Assessment and Plan - Assessment and Plan (Free Text) Assessment: 66 year old male with a past medical history significant for nephrolithiasis, HTN, HLD, CAD with 3 EDUIN who presented with a chief complaint of burning with urination for three days duration and found to have a leukocytosis of 16.4 upon admission. Plan: 1. Sepsis -SIRS Criteria: Leukocytosis (16.4), febrile (Rectal temperature of 101.7 at 1339 on 07/15), and tachycardia (111 bpm) on admission -Source of Infection: UTI per UA -Lactate of 1.9, CRP of >15.00, Procal of 0.18 -leukocytosis improving at 14.7, afebrile, normotensive and no tachycardia overnight -continue Rocephin 1gm IVP Q24H (received one dose in ED) -continue IVF: Normal Saline at 100mls/hr -continue Tylenol 650mg PO Q6H PRN for fever over 100.4 -continue Pyridium 100mg PO daily -Urine culture negative for growth -Blood cultures with no growth for 24 hours -Strain urine for stones as indicated -will continue to monitor for leukocytosis and trend fevers with daily CBC's and vital signs Q4H, respectively 2. Prostatic Enlargement -CT abdomen/pelvis showing prostate measuring 6x7cm with no hydronephrosis -Urology consulted, appreciate all recommendations 3. Pulmonary Nodules -CT abdomen/pelvis on admission showed pulmonary nodule of 7mm -CT chest revealed 8mm nodule in RLL unchanged since 2012, 4mm nodule of RLL which is also unchanged, a calcified granuloma LLL, and calcified mediastinal and hilar lymph nodes -given setting of chronic findings which are stable, will advise patient to follow up with Dr. Ibarra, his PMD, for routine monitoring upon discharge 4. CAD -[address] with the latest in 05/[address] Dolan -continue ASA and Plavix -heart healthy diet 5. HTN -continue Cozaar and Lopressor 6. HLD -continue Lipitor and Lovaza 7. Chronic Shoulder Pain -patient reports this is due to a small calcification and that he has had it for years -started motrin 400mg PO Q6H PRN for moderate pain 8. GI/DVT Prophylaxis -Protonix/Heparin Patient seen and case discussed in detail with attending, Dr. Nelly Bernardo. <Nelly Bernardo B - Last Filed: 07/17/17 15:23> Objective - Vital Signs/Intake and Output Vital Signs (last 24 hours): Temp Pulse Resp BP Pulse Ox 98.4 F 71 20 122/66 98 07/16/17 16:00 07/17/17 10:20 07/17/17 00:00 07/17/17 10:20 07/17/17 00:00 Intake and Output: 07/17/17 07/17/17 06:59 18:59 Intake Total 300 1120 Output Total 1000 600 Balance -700 520 - Labs Labs: 07/17/17 06:30 07/17/17 06:30 PT 11.6 Seconds (9.9-11.8) 07/15/17 13:30 INR 1.07 (0.93-1.08) 07/15/17 13:30 APTT 31.6 Seconds (23.7-30.8) H 07/15/17 13:30 Attending/Attestation - Attestation I have personally seen and examined this patient.: Yes I have fully participated in the care of the patient.: Yes I have reviewed all pertinent clinical information, including history, physical exam and plan: Yes Notes (Text): I have seen and examined the patient at bedside. Agree with the above note with the following additions/ exceptions: Briefly this is 66 year old male with history of BPH, HTN, dyslipidemia who was admitted for evaluation of sepsis secondary to UTI. Continue rocephin and pyridium. Urology consult pending. CT chest reviewed . No change in the size of lung nodule. Recommend outpatient pulmonary follow up. Upon discharge patient will follow up with Dr Ibarra. Dr Nelly Bernardo.
[2017-07-16 17:18] VITALS: TEMP 98.4
--- NOTE | 2017-07-17 01:50 | CON ---
DATE: 07/16/2017 CHIEF COMPLAINT: Dysuria. HISTORY OF PRESENT ILLNESS: This is a 66-year-old male, who is known to me. The patient has a history of recurrent urinary tract infections, reported nephrolithiasis, hypertension, coronary artery disease, who was having some burning in his urine for about 3 days prior to admission. The patient saw his primary medical doctor and he was started on ciprofloxacin and Pyridium. He was not having improvement in his symptoms and he came to the emergency room, he was found to have an elevated WBC count. A CT scan was done which showed no stones, prostatic hypertrophy and a pulmonary nodule. He was then admitted for possible sepsis and further workup. A consultation was requested regarding the above. PAST MEDICAL HISTORY: Significant for hypertension, hyperlipidemia, coronary artery disease, nephrolithiasis, BPH. MEDICATIONS: Currently on aspirin, Cozaar, heparin subcu, Lipitor, Lopressor, Lovaza, Motrin, Plavix, Protonix, Pyridium, Rocephin and Tylenol. ALLERGIES: ALLERGIC TO SHELLFISH. NO KNOWN DRUG ALLERGIES. FAMILY HISTORY: Noncontributory. SOCIAL HISTORY: Negative for smoking. Negative for EtOH use. REVIEW OF SYSTEMS: A 12-point review of systems was obtained. Positives as per the history of present illness. Other systems are negative. PHYSICAL EXAMINATION: GENERAL: The patient is awake and alert. He is in no acute distress. He is afebrile. VITAL SIGNS: Temp of 99.4, pulse of 76, BP 110/69, respirations are 18. NECK: Supple. There is no gross adenopathy. CHEST: Exam of the chest shows a normal inspiratory effort. CARDIAC: Positive S1 and S2. There is no peripheral edema. ABDOMEN: The abdomen is soft, nontender, nondistended. There is no hepatosplenomegaly. There is no costovertebral angle tenderness. GENITOURINARY: The phallus is normal. Scrotum is normal. Testes are bilaterally distended, nontender. No masses. Epididymides are normal. LABORATORY DATA: On laboratory exam, the patient had a WBC count of 16.4 yesterday which has come down to 14.7, creatinine normal at 0.9 with a GFR of greater than 60, elevated CRP. Urinalysis showed moderate blood, positive nitrites, moderate leukocyte esterase, 1-3 rbc's, 15-20 wbc on the microscopic, negative for protein. On radiologic exam, the patient had a CT scan of the abdomen and pelvis which showed kidneys and ureters were unremarkable, no hydronephrosis, no solid mass, bladder was unremarkable, prostate enlarged, measuring 6 x 7 cm. There was a 7 mm nodule in the right lower lung lobe. Microbiology, blood cultures are negative after 24-hours, urine culture showed no growth. IMPRESSION AND PLAN: This is a 66-year-old male, possible urine infection. The urine findings with positive nitrites are likely erroneous and the nitrites are positive because the patient is taking Pyridium. The urine culture is negative and this may be because patient has been taking ciprofloxacin as an outpatient. He does have an elevated WBC count which is now coming down on antibiotics and his symptoms are currently improving. The patient has a history of BPH, he has been voiding well and is followed in my office, he had a procedure on his prostate years ago, his postvoid residual has remained low. He previously was having recurrent urinary tract infections; however, this had recently been stable. The plan for now would be to continue treatment with fluids and antibiotics. Serial WBC count. The patient is undergoing workup for the pulmonary nodule. Urologically, when the patient's symptoms have improved, he can be discharged home. Follow up with me as an outpatient as he has been doing and we will continue to monitor his voiding, and I will recheck a urine culture when he is off antibiotics to make sure the infection has cleared. Thank you for allowing us to participate in the care of this patient. We will follow him with you. [place] MD
[2017-07-17 02:29] VITALS: RESP 20; O2SAT 98
[2017-07-17] MEDS: Sodium Chloride 0.9% 1,000 ML IV SCH ×2 (03:03→10:24)
[2017-07-17] MEDS: Pantoprazole 40 mg EC Tab PO SCH (06:43)
[2017-07-17 07:22] LABS: BASO # 0.01 K/mm3 (0.0-2.0); BASO % 0.1 % (0.0-3.0); EOS # 0.1 (0.0-0.7); GRAN # 7.09 (1.4-6.5); GRAN % 72.8 % (50.0-68.0); HEMATOCRIT 43.1 % (42.0-52.0); LYMPH # 1.8 (1.2-3.4); LYMPH % 18.3 % (22.0-35.0); MEAN CELL VOLUME 85.9 fl (80.0-105.0); MEAN CORPUSCULAR HEMOGLOBIN 28.9 pg (25.0-35.0); MEAN CORPUSCULAR HGB CONC 33.6 g/dl (31.0-37.0); MEAN PLATELET VOLUME 9.8 fl (7.0-11.0); MONO # 0.8 (0.1-0.6); MONO % 7.8 % (1.0-6.0); RED CELL DISTRIBUTION WIDTH 14.1 % (11.5-14.5); WHITE BLOOD COUNT 9.7 10^3/ul (4.5-11.0)
[2017-07-17 07:40] LABS: ALB/GLOB RATIO 1.3 (1.1-1.8); ALKALINE PHOSPHATASE 52 U/L (38-133); ALT/SGPT 34 U/L (7-56); AST/SGOT 19 U/L (15-59); BILIRUBIN,TOTAL 0.6 mg/dL (0.2-1.3); BLOOD UREA NITROGEN 9 mg/dL (7-21); CALCIUM 8.3 mg/dL (8.4-10.5); CARBON DIOXIDE 25 mmol/L (21-33); CHLORIDE 105 mmol/L (98-107); GFR AFRICAN-AMERICAN > 60; GLUCOSE,RANDOM 91 mg/dL (70-110); POTASSIUM 3.7 mmol/L (3.6-5.0); SODIUM 138 mmol/L (132-148); TOTAL PROTEIN 6.3 g/dL (5.8-8.3)
[2017-07-17] MEDS: cefTRIAXone 1 gm 1 GM/100 ML BAG IVPB SCH (10:02)
[2017-07-17] MEDS: Omega-3-Acid Ethyl Esters 1 GM Cap PO SCH (10:22)
[2017-07-17 10:27] VITALS: BP 122/66; PULSE 71
--- NOTE | 2017-07-19 21:50 | CP.PCM.DIS ---
<LEX VASQUEZ - Last Filed: 07/19/17 21:40> Provider - Provider Date of Admission: 07/15/17 14:37 Attending physician: Nelly Bernardo MD Primary care physician: NO PRIMARY CARE PROVIDER Consults: Urology: Erik Time Spent in preparation of Discharge (in minutes): 46 Hospital Course - Lab Results Lab Results: Most Recent Lab Values WBC 9.7 10^3/ul (4.5-11.0) D 07/17/17 06:30 RBC 5.02 10^6/uL (3.5-6.1) 07/17/17 06:30 Hgb 14.5 g/dL (14.0-18.0) 07/17/17 06:30 Hct 43.1 % (42.0-52.0) 07/17/17 06:30 MCV 85.9 fl (80.0-105.0) 07/17/17 06:30 MCH 28.9 pg (25.0-35.0) 07/17/17 06:30 MCHC 33.6 g/dl (31.0-37.0) 07/17/17 06:30 RDW 14.1 % (11.5-14.5) 07/17/17 06:30 Plt Count 185 10^3/uL (120.0-450.0) 07/17/17 06:30 MPV 9.8 fl (7.0-11.0) 07/17/17 06:30 Gran % 72.8 % (50.0-68.0) H 07/17/17 06:30 Lymph % (Auto) 18.3 % (22.0-35.0) L 07/17/17 06:30 [place] % (Auto) 7.8 % (1.0-6.0) H 07/17/17 06:30 Eos % (Auto) 1.0 % (1.5-5.0) L 07/17/17 06:30 Baso % (Auto) 0.1 % (0.0-3.0) 07/17/17 06:30 Gran # 7.09 (1.4-6.5) H 07/17/17 06:30 Lymph # 1.8 (1.2-3.4) 07/17/17 06:30 [place] # 0.8 (0.1-0.6) H 07/17/17 06:30 Eos # 0.1 (0.0-0.7) 07/17/17 06:30 Baso # 0.01 K/mm3 (0.0-2.0) 07/17/17 06:30 ESR 4 mm/hr (0.00-15.0) 07/15/17 13:30 PT 11.6 Seconds (9.9-11.8) 07/15/17 13:30 INR 1.07 (0.93-1.08) 07/15/17 13:30 APTT 31.6 Seconds (23.7-30.8) H 07/15/17 13:30 pO2 25 mm/Hg (30-55) L 07/15/17 13:30 VBG pH 7.36 (7.32-7.43) 07/15/17 13:30 VBG pCO2 55.0 (40-60) 07/15/17 13:30 VBG HCO3 31.1 mmol/l (21-28) H 07/15/17 13:30 VBG Total CO2 32.8 mmol.L (22-28) H 07/15/17 13:30 VBG O2 Sat (Calc) 56.7 % (40-65) 07/15/17 13:30 VBG Base Excess 3.8 mmol/L (0.0-2.0) H 07/15/17 13:30 VBG Potassium 4.1 mmol/L (3.6-5.2) 07/15/17 13:30 Sodium 135.0 mmol/L (132-148) 07/15/17 13:30 Chloride 97.0 mmol/L (98-107) L 07/15/17 13:30 Glucose 137 mg/dl (75-110) H 07/15/17 13:30 Lactate 1.9 mmol/L (0.7-2.1) 07/15/17 13:30 FiO2 21.0 % 07/15/17 13:30 Sodium 138 mmol/L (132-148) 07/17/17 06:30 Potassium 3.7 mmol/L (3.6-5.0) 07/17/17 06:30 Chloride 105 mmol/L (98-107) 07/17/17 06:30 Carbon Dioxide 25 mmol/L (21-33) 07/17/17 06:30 Anion Gap 12 (10-20) 07/17/17 06:30 BUN 9 mg/dL (7-21) 07/17/17 06:30 Creatinine 0.9 mg/dL (0.5-1.4) 07/17/17 06:30 Est GFR ( Amer) > 60 07/17/17 06:30 Est GFR (Non-Af Amer) > 60 07/17/17 06:30 Random Glucose 91 mg/dL (70-110) 07/17/17 06:30 Lactic Acid 1.1 mmol/L (0.7-2.1) 07/15/17 20:23 Calcium 8.3 mg/dL (8.4-10.5) L 07/17/17 06:30 Phosphorus 2.9 mg/dL (2.5-4.5) 07/15/17 13:30 Magnesium 2.0 mg/dL (1.7-2.2) 07/15/17 13:30 Total Bilirubin 0.6 mg/dL (0.2-1.3) 07/17/17 06:30 AST 19 U/L (15-59) 07/17/17 06:30 ALT 34 U/L (7-56) 07/17/17 06:30 Alkaline Phosphatase 52 U/L (38-133) 07/17/17 06:30 Lactate Dehydrogenase 357 U/L (333-699) 07/15/17 13:30 Total Creatine Kinase 82 U/L (35-230) 07/15/17 13:30 Troponin I < 0.01 ng/mL 07/15/17 13:30 C-React Prot High Sens > 15.00 mg/L (1.00-3.00) H 07/15/17 13:30 Total Protein 6.3 g/dL (5.8-8.3) 07/17/17 06:30 Albumin 3.5 g/dL (3.0-4.8) 07/17/17 06:30 Globulin 2.8 gm/dL 07/17/17 06:30 Albumin/Globulin Ratio 1.3 (1.1-1.8) 07/17/17 06:30 Lipase 47 U/L (23-300) 07/15/17 13:30 Procalcitonin 0.18 NG/ML (0.19-0.49) L 07/15/17 13:30 Venous Blood Potassium 4.1 mmol/L (3.6-5.2) 07/15/17 13:30 Urine Color Yellow (YELLOW) 07/15/17 13:30 Urine Appearance Sl cloudy (CLEAR) 07/15/17 13:30 Urine pH 7.0 (4.7-8.0) 07/15/17 13:30 Ur Specific [place] <= 1.005 (1.005-1.035) 07/15/17 13:30 Urine Protein Negative mg/dL (<30 mg/dL) 07/15/17 13:30 Urine Glucose (UA) Negative mg/dL (NEGATIVE) 07/15/17 13:30 Urine Ketones Negative mg/dL (NEGATIVE) 07/15/17 13:30 Urine Blood Moderate (NEGATIVE) H 07/15/17 13:30 Urine Nitrate Positive (NEGATIVE) H 07/15/17 13:30 Urine Bilirubin Negative (NEGATIVE) 07/15/17 13:30 Urine Urobilinogen 1.0 E.U./dL (<1 E.U./dL) H 07/15/17 13:30 Ur Leukocyte Esterase Moderate Edis/uL (NEGATIVE) H 07/15/17 13:30 Urine RBC 1 - 3 /hpf (0-2) 07/15/17 13:30 Urine WBC 15 - 20 /hpf (0-6) 07/15/17 13:30 Ur Epithelial Cells 6 - 8 /hpf (0-5) 07/15/17 13:30 Urine Bacteria Trace (NEG) 07/15/17 13:30 - Hospital Course Hospital Course: 66 year old male with a past medical history significant for nephrolithiasis, HTN, HLD, CAD with 3 EDUIN who presented with a chief complaint of burning with urination for three days duration. In the ED, patient was found to have a leukocytosis of 16.4 on CBC and a UA showed moderate blood, positive nitrates, moderate leukocyte esterase, 15-20 WBC's and trace amounts of bacteria. A CT abdomen/pelvis done in the ED showed no nephrolithiasis, an enlarged prostate and a 7mm pulmonary nodule in the RLL in the azygoesphageal recess. Urology was consulted. Patient was started on IV Rocephin. He was given a one time infusion of 3000ml NS over 30 minutes (Sepsis protocol) and then started on NS at 100mls/ hr. His home medications were continued. A CT chest was ordered and revealed 8mm nodule in RLL unchanged since 2012, 4mm nodule of RLL which is also unchanged, a calcified granuloma LLL, and calcified mediastinal and hilar lymph nodes. Patient was continued on IV Rocephin for 72 hours and last had a fever during this admission on 07/15 at 1309. His leukocytosis resolved on 07/17 and was found to be 9.7. He was discharged home on PO Vantan on 07/17 with strict instructions to follow up with Dr. Valencia and Dr. Ibarra for monitoring of his pulmonary nodules. - Date & Time of H&P Date of H&P: 07/15/17 Time of H&P: 16:19 Discharge Exam - Head Exam Head Exam: ATRAUMATIC, NORMOCEPHALIC - Eye Exam Eye Exam: EOMI, Normal appearance, PERRL Pupil Exam: NORMAL ACCOMODATION - ENT Exam ENT Exam: Mucous Membranes Moist, Normal Exam - Neck Exam Neck exam: Full Rom - Respiratory Exam Respiratory Exam: NORMAL BREATHING PATTERN, UNREMARKABLE. absent: Respiratory Distress - Cardiovascular Exam Cardiovascular Exam: REGULAR RHYTHM, RRR, +S1, +S2 - GI/Abdominal Exam GI & Abdominal Exam: Normal Bowel Sounds, Soft, Unremarkable. absent: Tenderness - Exam Exam: absent: Bladder Distension - Extremities Exam Extremities exam: normal capillary refill, normal inspection, pedal pulses present - Back Exam Back exam: absent: CVA tenderness (L), CVA tenderness (R), paraspinal tenderness , vertebral tenderness - Neurological Exam Neurological exam: Alert, Normal Gait, Oriented x3 - Psychiatric Exam Psychiatric exam: Normal Affect, Normal Mood - Skin Skin Exam: Dry, Intact, Normal Color, Warm Discharge Plan - Discharge Medications Prescriptions: Cefpodoxime [Vantin] 100 mg PO BID #14 tab - Follow Up Plan Condition: FAIR Disposition: HOME/ ROUTINE Instructions: Urinary Tract Infection in Men (DC), Sepsis (ED) Additional Instructions: 1. Please follow up with your PMD, Dr. Ibarra, within 1-2 weeks to discuss monitoring of your pulmonary nodules and your UTI treatment course. 2. Please follow up with your urologist, Dr. Valencia, within 1-2 weeks to discuss your UTI treatment course and BPH. 3. Please take all medications as prescribed. 4. If your symptoms persist or worsen, please seek emergency medical attention. Referrals: New Valencia MD [Staff Provider] - PCP,NERY [Primary Care Provider] - Juan Ibarra APN [Advanced Practice Nurse] - <Nelly Bernardo - Last Filed: 07/20/17 15:25> Provider - Provider Date of Admission: 07/15/17 14:37 Attending physician: Nelly Bernardo MD Primary care physician: NERY PRIMARY CARE PROVIDER Hospital Course - Lab Results Lab Results: Most Recent Lab Values WBC 9.7 10^3/ul (4.5-11.0) D 07/17/17 06:30 RBC 5.02 10^6/uL (3.5-6.1) 07/17/17 06:30 Hgb 14.5 g/dL (14.0-18.0) 07/17/17 06:30 Hct 43.1 % (42.0-52.0) 07/17/17 06:30 MCV 85.9 fl (80.0-105.0) 07/17/17 06:30 MCH 28.9 pg (25.0-35.0) 07/17/17 06:30 MCHC 33.6 g/dl (31.0-37.0) 07/17/17 06:30 RDW 14.1 % (11.5-14.5) 07/17/17 06:30 Plt Count 185 10^3/uL (120.0-450.0) 07/17/17 06:30 MPV 9.8 fl (7.0-11.0) 07/17/17 06:30 Gran % 72.8 % (50.0-68.0) H 07/17/17 06:30 Lymph % (Auto) 18.3 % (22.0-35.0) L 07/17/17 06:30 [place] % (Auto) 7.8 % (1.0-6.0) H 07/17/17 06:30 Eos % (Auto) 1.0 % (1.5-5.0) L 07/17/17 06:30 Baso % (Auto) 0.1 % (0.0-3.0) 07/17/17 06:30 Gran # 7.09 (1.4-6.5) H 07/17/17 06:30 Lymph # 1.8 (1.2-3.4) 07/17/17 06:30 [place] # 0.8 (0.1-0.6) H 07/17/17 06:30 Eos # 0.1 (0.0-0.7) 07/17/17 06:30 Baso # 0.01 K/mm3 (0.0-2.0) 07/17/17 06:30 ESR 4 mm/hr (0.00-15.0) 07/15/17 13:30 PT 11.6 Seconds (9.9-11.8) 07/15/17 13:30 INR 1.07 (0.93-1.08) 07/15/17 13:30 APTT 31.6 Seconds (23.7-30.8) H 07/15/17 13:30 pO2 25 mm/Hg (30-55) L 07/15/17 13:30 VBG pH 7.36 (7.32-7.43) 07/15/17 13:30 VBG pCO2 55.0 (40-60) 07/15/17 13:30 VBG HCO3 31.1 mmol/l (21-28) H 07/15/17 13:30 VBG Total CO2 32.8 mmol.L (22-28) H 07/15/17 13:30 VBG O2 Sat (Calc) 56.7 % (40-65) 07/15/17 13:30 VBG Base Excess 3.8 mmol/L (0.0-2.0) H 07/15/17 13:30 VBG Potassium 4.1 mmol/L (3.6-5.2) 07/15/17 13:30 Sodium 135.0 mmol/L (132-148) 07/15/17 13:30 Chloride 97.0 mmol/L (98-107) L 07/15/17 13:30 Glucose 137 mg/dl (75-110) H 07/15/17 13:30 Lactate 1.9 mmol/L (0.7-2.1) 07/15/17 13:30 FiO2 21.0 % 07/15/17 13:30 Sodium 138 mmol/L (132-148) 07/17/17 06:30 Potassium 3.7 mmol/L (3.6-5.0) 07/17/17 06:30 Chloride 105 mmol/L (98-107) 07/17/17 06:30 Carbon Dioxide 25 mmol/L (21-33) 07/17/17 06:30 Anion Gap 12 (10-20) 07/17/17 06:30 BUN 9 mg/dL (7-21) 07/17/17 06:30 Creatinine 0.9 mg/dL (0.5-1.4) 07/17/17 06:30 Est GFR ( Amer) > 60 07/17/17 06:30 Est GFR (Non-Af Amer) > 60 07/17/17 06:30 Random Glucose 91 mg/dL (70-110) 07/17/17 06:30 Lactic Acid 1.1 mmol/L (0.7-2.1) 07/15/17 20:23 Calcium 8.3 mg/dL (8.4-10.5) L 07/17/17 06:30 Phosphorus 2.9 mg/dL (2.5-4.5) 07/15/17 13:30 Magnesium 2.0 mg/dL (1.7-2.2) 07/15/17 13:30 Total Bilirubin 0.6 mg/dL (0.2-1.3) 07/17/17 06:30 AST 19 U/L (15-59) 07/17/17 06:30 ALT 34 U/L (7-56) 07/17/17 06:30 Alkaline Phosphatase 52 U/L (38-133) 07/17/17 06:30 Lactate Dehydrogenase 357 U/L (333-699) 07/15/17 13:30 Total Creatine Kinase 82 U/L (35-230) 07/15/17 13:30 Troponin I < 0.01 ng/mL 07/15/17 13:30 C-React Prot High Sens > 15.00 mg/L (1.00-3.00) H 07/15/17 13:30 Total Protein 6.3 g/dL (5.8-8.3) 07/17/17 06:30 Albumin 3.5 g/dL (3.0-4.8) 07/17/17 06:30 Globulin 2.8 gm/dL 07/17/17 06:30 Albumin/Globulin Ratio 1.3 (1.1-1.8) 07/17/17 06:30 Lipase 47 U/L (23-300) 07/15/17 13:30 Procalcitonin 0.18 NG/ML (0.19-0.49) L 07/15/17 13:30 Venous Blood Potassium 4.1 mmol/L (3.6-5.2) 07/15/17 13:30 Urine Color Yellow (YELLOW) 07/15/17 13:30 Urine Appearance Sl cloudy (CLEAR) 07/15/17 13:30 Urine pH 7.0 (4.7-8.0) 07/15/17 13:30 Ur Specific [place] <= 1.005 (1.005-1.035) 07/15/17 13:30 Urine Protein Negative mg/dL (<30 mg/dL) 07/15/17 13:30 Urine Glucose (UA) Negative mg/dL (NEGATIVE) 07/15/17 13:30 Urine Ketones Negative mg/dL (NEGATIVE) 07/15/17 13:30 Urine Blood Moderate (NEGATIVE) H 07/15/17 13:30 Urine Nitrate Positive (NEGATIVE) H 07/15/17 13:30 Urine Bilirubin Negative (NEGATIVE) 07/15/17 13:30 Urine Urobilinogen 1.0 E.U./dL (<1 E.U./dL) H 07/15/17 13:30 Ur Leukocyte Esterase Moderate Edis/uL (NEGATIVE) H 07/15/17 13:30 Urine RBC 1 - 3 /hpf (0-2) 07/15/17 13:30 Urine WBC 15 - 20 /hpf (0-6) 07/15/17 13:30 Ur Epithelial Cells 6 - 8 /hpf (0-5) 07/15/17 13:30 Urine Bacteria Trace (NEG) 07/15/17 13:30 Attending/Attestation - Attestation I have personally seen and examined this patient.: Yes I have fully participated in the care of the patient.: Yes I have reviewed all pertinent clinical information, including history, physical exam and plan: Yes Notes (Text): I have seen and examined the patient at bedside. Agree with the above note with the following additions/ exceptions: Briefly this is 66 year old male with history of BPH, HTN, dyslipidemia who was admitted for evaluation of sepsis secondary to UTI. He was given rocephin and pyridium and he will go home on po vantin. Urology consult appreciated. CT chest reviewed. No change in the size of lung nodule. Recommend outpatient pulmonary follow up. Upon discharge patient will follow up with Dr Ibarra and Dr Valencia. Dr Nelly Bernardo.
== END 2017-07-17 15:01 | disposition home or self-care (01) | DRG 901 ==
LOC: ED 12:52 → ERH 14:37 → 3RSO 16:39
PROVIDERS: ADMIT Internal Medicine; ATTEND Hospitalist
DX: A41.9 Sepsis, unspecified organism (principal); N39.0 Urinary tract infection, site not specified; I10 Essential (primary) hypertension; I25.10 Atherosclerotic heart disease of native coronary artery without angina pectoris; N40.0 Benign prostatic hyperplasia without lower urinary tract symptoms; E78.5 Hyperlipidemia, unspecified; R91.1 Solitary pulmonary nodule; G89.29 Other chronic pain; M25.519 Pain in unspecified shoulder; Z95.5 Presence of coronary angioplasty implant and graft; Z87.442 Personal history of urinary calculi; Z94.7 Corneal transplant status

== ENCOUNTER 2017-12-31 06:10 | Emergency (ER) | payer OTHER, MEDICARE ==
[2017-12-31 06:19] VITALS: BMI 37.1
[2017-12-31 06:27] VITALS: RESP 18; TEMP 98.1
--- NOTE | 2017-12-31 07:20 | ED PDOC ---
Arrival/HPI - General Chief Complaint: Lower Extremity Problem/Injury Time Seen by Provider: 12/31/17 07:07 Historian: Patient - History of Present Illness Narrative History of Present Illness (Text): 12/31/17 07:10 Moises Alanis is a 67 year old male, whose past medical history includes hypertension and arthritis, who presents to the emergency department complaining of right knee pain since one day ago. Patient denies any fall or trauma to the knee or taking medication for the pain. He notes having left knee physical therapy. No other complaints were made. Time/Duration: 24 hours Symptom Onset: Sudden Symptom Course: Unchanged Activities at Onset: Light Past Medical History - Provider Review Nursing Documentation Reviewed: Yes - Infectious Disease Hx of Infectious Diseases: None - Cardiac Hx Cardiac Disorders: Yes (CAD) Hx Hypertension: Yes Hx Pacemaker: No Other/Comment: 3 stents - Pulmonary Hx Respiratory Disorders: No - Neurological Hx Neurological Disorder: No - HEENT Hx HEENT Disorder: Yes Hx Cataracts: Yes (SX) Other/Comment: history of bilateral corneal transplants 2007. glasses - Renal Hx Renal Disorder: Yes (RENAL CYSTS,HYDRONEPHROSIS) Hx Kidney Stones: Yes (2009) - Endocrine/Metabolic Hx Endocrine Disorders: No - Hematological/Oncological Hx Blood Disorders: No - Integumentary Hx Dermatological Disorder: No - Musculoskeletal/Rheumatological Hx Musculoskeletal Disorders: No Hx Arthritis: Yes - Gastrointestinal Hx Gastrointestinal Disorders: Yes (INGUINAL HERNIA REPAIR,UMBILICAL HERNIA) - Genitourinary/Gynecological Hx Genitourinary Disorders: Yes (UTI 06/25/15,07-15-17) Hx Hematuria: Yes Hx Prostate Problems: Yes (ENLARGED) Hx Urinary Tract Infection: Yes - Psychiatric Hx Psychophysiologic Disorder: No Hx Emotional Abuse: No Hx Physical Abuse: No Hx Substance Use: No - Surgical History Hx Coronary Stent: Yes (2004 x2) - Anesthesia Hx Anesthesia: Yes Hx Anesthesia Reactions: No Hx Malignant Hyperthermia: No - Suicidal Assessment Feels Threatened In Home Enviroment: No Family/Social History - Physician Review Nursing Documentation Reviewed: Yes Family/Social History: Unknown Family HX Smoking Status: Never Smoked Hx Alcohol Use: No Hx Substance Use: No Allergies/Home Meds Allergies/Adverse Reactions: Allergies shellfish derived Allergy (Intermediate, Verified 12/31/17 06:18) GENERALIZED RASH Home Medications: Home Meds Medication Instructions Recorded Confirmed Aspirin [Aspirin Chewable] 81 mg PO QAM 08/21/16 12/31/17 Atorvastatin [Lipitor] 40 mg PO QPM 08/21/16 12/31/17 Clopidogrel [Plavix] 75 mg PO QAM 08/21/16 12/31/17 Losartan [Cozaar] 25 mg PO QAM 08/21/16 12/31/17 Metoprolol Tartrate 25 mg PO QAM 08/21/16 12/31/17 [id number] Ethyl Esters 1 GM 3 gm PO BID 08/21/16 12/31/17 [Lovaza] Review of Systems - Physician Review All systems were reviewed & negative as marked: Yes - Review of Systems Constitutional: absent: Fevers Respiratory: absent: SOB Cardiovascular: absent: Chest Pain Musculoskeletal: Other (right knee pain) Physical Exam Vital Signs Reviewed: Yes Vital Signs Temp Pulse Resp BP Pulse Ox 12/31/17 08:41 78 18 142/83 100 12/31/17 06:26 98.1 F 80 18 143/91 H 98 Temperature: Afebrile Blood Pressure: Hypertensive Pulse: Regular Respiratory Rate: Normal Appearance: Positive for: Well-Appearing, Non-Toxic, Comfortable Pain Distress: None Mental Status: Positive for: Alert and Oriented X 3 - Systems Exam Head: Present: Atraumatic, Normocephalic Pupils: Present: PERRL Extroacular Muscles: Present: EOMI Conjunctiva: Present: Normal Neck: Present: Normal Range of Motion Lower Extremity: Present: NORMAL PULSES, Tenderness (mild right knee tenderness) , Neurovascularly Intact, Capillary Refill < 2 s. No: Edema, Cyanosis, Normal ROM (pain with range of motion of right knee), Swelling, Deformity Neurological: Present: GCS=15, CN II-XII Intact, Speech Normal Skin: Present: Warm, Dry, Normal Color. No: Rashes Psychiatric: Present: Alert, Oriented x 3, Normal Insight, Normal Concentration Medical Decision Making ED Course and Treatment: 12/31/17 Impression: 67 year old male with mild tenderness on right knee and pain with mild pain to area of left meniscus. no er Plan: -- Right knee x-ray -- Toradol -- Reassess and disposition Progress Notes: 12/31/17 08:50 Right Knee x-ray: Creator: Yan Looney MD FINDINGS: BONES: Normal. No fracture. JOINTS: Normal. No osteoarthritis. JOINT EFFUSION: None. OTHER FINDINGS: None. IMPRESSION: Normal radiographs of the right knee. 12/31/17 09:00 Reevaluation: On reevaluation the patient feels better and is in no acute distress. I have discussed the results and plan with the patient, who expresses understanding. Patient given the opportunity to ask question, all questions were answered and there is agreement with the plan to discharge the patient home. Patient did not want crutches and was placed in a knee immobilizer. 12/31/17 12:11 - RAD Interpretation Radiology Orders: 12/31/17 07:14 KNEE RIGHT 2 VIEWS (AP & LAT) [RAD] Stat [employer] Web Developer: Radiologist - Medication Orders Current Medication Orders: Discontinued Medications Ketorolac Tromethamine (Toradol) 30 mg IM STAT STA Stop: 12/31/17 07:15 Last Admin: 12/31/17 08:11 Dose: 30 mg MAR Pain Assessment Document 12/31/17 08:11 (Rec: 12/31/17 08:12 [id number]) Pain Reassessment Is this a pain reassessment? Yes Sleep Is patient sleeping during reassessment? No Presence of Pain Presence of Pain Yes Pain Scale Used Pain Scale Used Numeric Location Left, Right or Bilateral Right Pain Location Body Site Knee Description Description Constant Intensity of Pain at present 9 Pain Behavior Withdrawal from Touch Facial Grimacing Aggravating Factors Exercise/Activity Walking Alleviating Factors/Management Medication Techniques Alleviating Factors Medication IM Administration Charges Document 12/31/17 08:11 (Rec: 12/31/17 08:12 MR [id number]) Injection Site MAR Injection Site Left Deltoid Charges for Administration # of IM Administrations 1 - Scribe Statement The provider has reviewed the documentation as recorded by the Scribe Kelly Aceves Provider Scribe Attestation: All medical record entries made by the Scribe were at my direction and personally dictated by me. I have reviewed the chart and agree that the record accurately reflects my personal performance of the history, physical exam, medical decision making, and the department course for this patient. I have also personally directed, reviewed, and agree with the discharge instructions and disposition. Disposition/Present on Arrival - Present on Arrival Any Indicators Present on Arrival: No History of DVT/PE: No History of Uncontrolled Diabetes: No Urinary Catheter: No History of Decub. Ulcer: No History Surgical Site Infection Following: None - Disposition Have Diagnosis and Disposition been Completed?: Yes Diagnosis: Knee pain Disposition: HOME/ ROUTINE Disposition Time: 07:59 Condition: STABLE Discharge Instructions (ExitCare): Knee Sprain (ED) Additional Instructions: follow up with specialist. return to er with worsening symptoms or concerns. Prescriptions: Naproxen [Naprosyn] 500 mg PO BID PRN #14 tablet PRN Reason: Pain, Mild (1-3) Referrals: Dede Ibarra DO [Primary Care Provider] - Follow up with primary [facility] [place] - Follow up with primary [facility] [Outside] - Follow up with primary Jcarlos Zaidi DO [Staff Provider] - Follow up with primary Forms: [facility] ([place]), WORK NOTE
[2017-12-31 08:42] VITALS: BP 142/83; PULSE 78; O2SAT 100
--- NOTE | 2017-12-31 08:50 | RAD ---
PROCEDURE: Right Knee Radiographs. HISTORY: knee pain COMPARISON: None. FINDINGS: BONES: Normal. No fracture. JOINTS: Normal. No osteoarthritis. JOINT EFFUSION: None. OTHER FINDINGS: None. IMPRESSION: Normal radiographs of the right knee.
== END 2017-12-31 08:59 | disposition home or self-care (01) ==
LOC: ED 06:10
DX: M25.561 Pain in right knee (principal)
CPT/HCPCS: 73560; 96372; 99283; J1885

== ENCOUNTER 2018-01-04 06:34 | Emergency (ER) | payer MEDICARE, OTHER ==
[2018-01-04 06:34] VITALS: BMI 37.1
[2018-01-04 07:11] VITALS: RESP 18
--- NOTE | 2018-01-04 07:23 | ED PDOC ---
Arrival/HPI - General Chief Complaint: Medical Clearance Time Seen by Provider: 01/04/18 07:11 Historian: Patient - History of Present Illness Narrative History of Present Illness (Text): 01/04/18 07:19 67 year old male, with past medical history of hypertension, CAD with 3 stents, cataract and arthritis, presents to the Emergency department complaining of flu- like symptoms since Thursday. Patient informs visiting his PMD, Dr. Ibarra, who prescribed him zithromax but with no improvement to symptoms. Patient informs unchanged cough, sore throat, body ache and intermittent fever since onset bringing him to the Emergency department today. Patient denies any chills, nausea, vomiting, diarrhea, abdominal pain, chest pain, shortness of breath, sick contact or any other complaints. PMD: Dr. Ibarra Time/Duration: < week Symptom Course: Unchanged Quality: Aching Activities at Onset: Light Context: Home Past Medical History - Provider Review Nursing Documentation Reviewed: Yes - Infectious Disease Hx of Infectious Diseases: None - Cardiac Hx Cardiac Disorders: Yes (CAD) Hx Hypertension: Yes Hx Pacemaker: No Other/Comment: 3 stents - Pulmonary Hx Respiratory Disorders: No - Neurological Hx Neurological Disorder: No - HEENT Hx HEENT Disorder: Yes Hx Cataracts: Yes (SX) Other/Comment: history of bilateral corneal transplants 2007. glasses - Renal Hx Renal Disorder: Yes (RENAL CYSTS,HYDRONEPHROSIS) Hx Kidney Stones: Yes (2009) - Endocrine/Metabolic Hx Endocrine Disorders: No - Hematological/Oncological Hx Blood Disorders: No - Integumentary Hx Dermatological Disorder: No - Musculoskeletal/Rheumatological Hx Musculoskeletal Disorders: No Hx Arthritis: Yes - Gastrointestinal Hx Gastrointestinal Disorders: Yes (INGUINAL HERNIA REPAIR,UMBILICAL HERNIA) - Genitourinary/Gynecological Hx Genitourinary Disorders: Yes (UTI 06/25/15,07-15-17) Hx Hematuria: Yes Hx Prostate Problems: Yes (ENLARGED) Hx Urinary Tract Infection: Yes - Psychiatric Hx Psychophysiologic Disorder: No Hx Emotional Abuse: No Hx Physical Abuse: No Hx Substance Use: No - Surgical History Hx Coronary Stent: Yes (x3 stents) - Anesthesia Hx Anesthesia: Yes Hx Anesthesia Reactions: No Hx Malignant Hyperthermia: No - Suicidal Assessment Feels Threatened In Home Enviroment: No Family/Social History - Physician Review Nursing Documentation Reviewed: Yes Family/Social History: No Known Family HX Smoking Status: Never Smoked Hx Alcohol Use: No Hx Substance Use: No Allergies/Home Meds Allergies/Adverse Reactions: Allergies shellfish derived Allergy (Intermediate, Verified 01/04/18 06:56) GENERALIZED RASH Home Medications: Home Meds Medication Instructions Recorded Confirmed Aspirin [Aspirin Chewable] 81 mg PO QAM 08/21/16 01/04/18 Atorvastatin [Lipitor] 40 mg PO QPM 08/21/16 01/04/18 Clopidogrel [Plavix] 75 mg PO QAM 08/21/16 12/31/17 Losartan [Cozaar] 25 mg PO QAM 08/21/16 01/04/18 Metoprolol Tartrate 25 mg PO QAM 08/21/16 01/04/18 [id number] Ethyl Esters 1 GM 3 gm PO BID 08/21/16 01/04/18 [Lovaza] Azithromycin [Z-Rey] 1 tab PO QD5 01/04/18 01/04/18 Benzonatate [Tessalon Perles] 100 mg PO TID 01/04/18 01/04/18 Review of Systems - Physician Review All systems were reviewed & negative as marked: Yes - Review of Systems Constitutional: Fevers Eyes: Normal ENT: Sore Throat Respiratory: Cough. absent: SOB Cardiovascular: Normal. absent: Chest Pain Gastrointestinal: Normal. absent: Abdominal Pain, Diarrhea, Nausea, Vomiting Genitourinary Male: Normal Musculoskeletal: Normal Skin: Normal Neurological: Normal Endocrine: Normal Hemo/Lymphatic: Normal Psychiatric: Normal Physical Exam Vital Signs Reviewed: Yes Vital Signs Temp Pulse Resp BP Pulse Ox 01/04/18 12:00 70 18 121/77 98 01/04/18 10:25 99.2 F 67 18 116/71 98 01/04/18 08:20 70 18 128/76 98 01/04/18 07:02 99.4 F 88 18 144/88 99 Temperature: Afebrile Blood Pressure: Normal Pulse: Regular Respiratory Rate: Normal Appearance: Positive for: Well-Appearing, Non-Toxic, Comfortable Pain Distress: None Mental Status: Positive for: Alert and Oriented X 3 - Systems Exam Head: Present: Atraumatic, Normocephalic Pupils: Present: PERRL Extroacular Muscles: Present: EOMI Conjunctiva: Present: Normal Mouth: Present: Moist Mucous Membranes Pharnyx: Present: ERYTHEMA (mild) Neck: Present: Normal Range of Motion Respiratory/Chest: Present: Clear to Auscultation, Good Air Exchange. No: Respiratory Distress, Accessory Muscle Use Cardiovascular: Present: Regular Rate and Rhythm, Normal S1, S2. No: Murmurs Abdomen: Present: Normal Bowel Sounds. No: Tenderness, Distention, Peritoneal Signs Back: Present: Normal Inspection Upper Extremity: Present: Normal Inspection. No: Cyanosis, Edema Lower Extremity: Present: Normal Inspection. No: Edema Neurological: Present: GCS=15, CN II-XII Intact, Speech Normal Skin: Present: Warm, Dry, Normal Color. No: Rashes Psychiatric: Present: Alert, Oriented x 3, Normal Insight, Normal Concentration Medical Decision Making ED Course and Treatment: 01/04/18 07:25 Impression: 67 year old male presents to the Emergency department for flu-like symptoms. Plan: -- Rapid flu A/B -- Rapid strep -- Tylenol -- X-ray -- Reassess and disposition Progress Notes: 01/04/18 17:11 cxr neg. pt well apperaing .flu daniel ltreat. vital stable. sleeping in er. - Lab Interpretations Lab Results: Lab Results 01/04/18 08:20: Influenza Typ A,B (EIA) Pos for influenza b H, Grp A Beta Strep Ag Negative - RAD Interpretation Radiology Orders: 01/04/18 07:18 CHEST TWO VIEWS (PA/LAT) [RAD] Stat - Medication Orders Current Medication Orders: Discontinued Medications Acetaminophen (Tylenol 325mg Tab) 975 mg PO STAT STA Stop: 01/04/18 07:19 Last Admin: 01/04/18 07:50 Dose: 975 mg MAR Pain/Vitals Document 01/04/18 07:50 FAUSTINO (Rec: 01/04/18 08:20 FAUSTINO [id number]) Pain Reassessment Is This A Pain ReAssessment? No Sleep Is patient sleeping during reassessment? No Presence of Pain Presence of Pain Yes Oseltamivir Phosphate (Tamiflu Cap) 75 mg PO STAT STA PRN Reason: Protocol Stop: 01/04/18 09:12 Last Admin: 01/04/18 10:00 Dose: 75 mg - Scribe Statement The provider has reviewed the documentation as recorded by the Cathyibe Taran Jones. All medical record entries made by the Scribe were at my direction and personally dictated by me. I have reviewed the chart and agree that the record accurately reflects my personal performance of the history, physical exam, medical decision making, and the department course for this patient. I have also personally directed, reviewed, and agree with the discharge instructions and disposition. Disposition/Present on Arrival - Present on Arrival Any Indicators Present on Arrival: No History of DVT/PE: No History of Uncontrolled Diabetes: No Urinary Catheter: No History of Decub. Ulcer: No History Surgical Site Infection Following: None - Disposition Have Diagnosis and Disposition been Completed?: Yes Diagnosis: Influenza Disposition: HOME/ ROUTINE Disposition Time: 11:46 Condition: STABLE Discharge Instructions (ExitCare): Influenza (ED) Additional Instructions: return to er with worsneing symptoms or concerns. Prescriptions: Oseltamivir Phosphate [Tamiflu] 75 mg PO BID #10 capsule Referrals: Anabelle Cash, [Non-Staff] - Follow up with primary Forms: [facility] (Indonesian), WORK NOTE
[2018-01-04 09:12] LABS: INFLUENZA A B POS FOR INFLUENZA B (NEGATIVE)
[2018-01-04 10:26] VITALS: TEMP 99.2; O2SAT 98
[2018-01-04 12:16] VITALS: BP 121/77; PULSE 70
--- NOTE | 2018-01-04 14:23 | RAD ---
HISTORY: COMPARISON: 07/15/2017. TECHNIQUE: Chest PA and lateral FINDINGS: LINES AND TUBES: None. LUNG AND PLEURA: The lungs are well inflated and clear. HEART AND MEDIASTINUM: The heart is not enlarged. The hilar and mediastinal contours are within normal limits. SKELETAL STRUCTURES: The bony structures are within normal limits for the patient's age. VISUALIZED UPPER ABDOMEN: Normal. OTHER FINDINGS: None. IMPRESSION: No active pulmonary disease.
== END 2018-01-04 12:30 | disposition home or self-care (01) ==
LOC: ED 06:34
DX: J11.1 Influenza due to unidentified influenza virus with other respiratory manifestations (principal)

== ENCOUNTER 2018-02-02 19:57 | Emergency (ER) | payer OTHER ==
[2018-02-02 20:04] VITALS: BMI 35.5
[2018-02-02 20:16] VITALS: RESP 18; TEMP 98
[2018-02-02 20:46] LABS: BASO # 0.01 K/mm3 (0.0-2.0); BASO % 0.1 % (0.0-3.0); GRAN # 6.03 (1.4-6.5); GRAN % 85.2 % (50.0-68.0); HEMOGLOBIN 17.7 g/dL (14.0-18.0); LYMPH # 0.9 (1.2-3.4); LYMPH % 12.9 % (22.0-35.0); MEAN CELL VOLUME 86.6 fl (80.0-105.0); MEAN CORPUSCULAR HEMOGLOBIN 29.4 pg (25.0-35.0); MEAN CORPUSCULAR HGB CONC 33.9 g/dl (31.0-37.0); MEAN PLATELET VOLUME 10.4 fl (7.0-11.0); MONO # 0.1 (0.1-0.6); MONO % 1.8 % (1.0-6.0); RBC 6.03 10^6/uL (3.5-6.1); RED CELL DISTRIBUTION WIDTH 14.6 % (11.5-14.5); WHITE BLOOD COUNT 7.1 10^3/ul (4.5-11.0)
[2018-02-02 20:54] LABS: ALB/GLOB RATIO 1.3 (1.1-1.8); ALBUMIN 4.6 g/dL (3.0-4.8); GFR AFRICAN-AMERICAN > 60; GFR NON-AFRICAN AMERICAN > 60
[2018-02-02 21:04] LABS: ALT/SGPT 41 U/L (7-56); AST/SGOT 38 U/L (17-59); BLOOD UREA NITROGEN 21 mg/dL (7-21)
[2018-02-02 21:07] LABS: TROPONIN I < 0.01 ng/mL
[2018-02-02 21:50] VITALS: O2SAT 95
--- NOTE | 2018-02-02 22:24 | ED PDOC ---
Arrival/HPI - General Chief Complaint: Palpitations Time Seen by Provider: 02/02/18 20:01 Historian: Patient - History of Present Illness Narrative History of Present Illness (Text): 02/02/18 22:21 Moises Alanis is a 67 year old male, whose past medical history includes nephrolithiasis, hypertension, hyperlipidemia, and CAD with 3 EDUIN, who presents to the emergency department complaining of palpitations prior to arrival. Patient notes she feel flushed and hot. Patient denies any fever, chills, chest pain, shortness of breath, nausea, vomiting, diarrhea, back pain, neck pain, headache, dizziness or any other complaints. Time/Duration: Prior to Arrival Symptom Onset: Gradual Symptom Course: Unchanged Activities at Onset: Light Context: Home Past Medical History - Provider Review Nursing Documentation Reviewed: Yes - Infectious Disease Hx of Infectious Diseases: None - Cardiac Hx Cardiac Disorders: Yes (CAD) Hx Hypertension: Yes Hx Pacemaker: No Other/Comment: 3 stents - Pulmonary Hx Respiratory Disorders: No - Neurological Hx Neurological Disorder: No - HEENT Hx HEENT Disorder: Yes Hx Cataracts: Yes (SX) Other/Comment: history of bilateral corneal transplants 2007. glasses - Renal Hx Renal Disorder: Yes (RENAL CYSTS,HYDRONEPHROSIS) Hx Kidney Stones: Yes (2009) - Endocrine/Metabolic Hx Endocrine Disorders: No - Hematological/Oncological Hx Blood Disorders: No - Integumentary Hx Dermatological Disorder: No - Musculoskeletal/Rheumatological Hx Musculoskeletal Disorders: No Hx Arthritis: Yes - Gastrointestinal Hx Gastrointestinal Disorders: Yes (INGUINAL HERNIA REPAIR,UMBILICAL HERNIA) - Genitourinary/Gynecological Hx Genitourinary Disorders: Yes (UTI 06/25/15,07-15-17) Hx Hematuria: Yes Hx Prostate Problems: Yes (ENLARGED) Hx Urinary Tract Infection: Yes - Psychiatric Hx Psychophysiologic Disorder: No Hx Emotional Abuse: No Hx Physical Abuse: No Hx Substance Use: No - Surgical History Hx Coronary Stent: Yes (x3 stents) - Anesthesia Hx Anesthesia: Yes Hx Anesthesia Reactions: No Hx Malignant Hyperthermia: No - Suicidal Assessment Feels Threatened In Home Enviroment: No Family/Social History - Physician Review Nursing Documentation Reviewed: Yes Family/Social History: Unknown Family HX Smoking Status: Never Smoked Hx Alcohol Use: No Hx Substance Use: No Allergies/Home Meds Allergies/Adverse Reactions: Allergies shellfish derived Allergy (Intermediate, Verified 01/04/18 06:56) GENERALIZED RASH Home Medications: Home Meds Medication Instructions Recorded Confirmed Aspirin [Aspirin Chewable] 81 mg PO QAM 08/21/16 01/04/18 Atorvastatin [Lipitor] 40 mg PO QPM 08/21/16 01/04/18 Clopidogrel [Plavix] 75 mg PO QAM 08/21/16 12/31/17 Losartan [Cozaar] 25 mg PO QAM 08/21/16 01/04/18 Metoprolol Tartrate 25 mg PO QAM 08/21/16 01/04/18 [id number] Ethyl Esters 1 GM 3 gm PO BID 08/21/16 01/04/18 [Lovaza] Azithromycin [Z-Rey] 1 tab PO QD5 01/04/18 01/04/18 Benzonatate [Tessalon Perles] 100 mg PO TID 01/04/18 01/04/18 Review of Systems - Physician Review All systems were reviewed & negative as marked: Yes - Review of Systems Constitutional: Normal Eyes: Normal ENT: Normal Respiratory: Normal. absent: SOB, Cough Cardiovascular: Palpitations Gastrointestinal: Normal. absent: Abdominal Pain, Diarrhea, Nausea, Vomiting Genitourinary Male: Normal. absent: Dysuria, Frequency, Hematuria, Urinary Output Changes Musculoskeletal: Normal. absent: Back Pain, Neck Pain Skin: Normal. absent: Rash Neurological: Normal Endocrine: Normal Hemo/Lymphatic: Normal Psychiatric: Normal Physical Exam Vital Signs Reviewed: Yes Vital Signs Temp Pulse Resp BP Pulse Ox 02/02/18 22:28 89 18 131/89 95 02/02/18 21:50 85 18 132/88 95 02/02/18 20:11 98.0 F 105 H 18 151/93 H 97 Temperature: Afebrile Blood Pressure: Normal Pulse: Tachycardic Respiratory Rate: Normal Appearance: Positive for: Well-Appearing, Non-Toxic, Comfortable Pain Distress: None Mental Status: Positive for: Alert and Oriented X 3 - Systems Exam Head: Present: Atraumatic, Normocephalic Pupils: Present: PERRL Extroacular Muscles: Present: EOMI Conjunctiva: Present: Normal Mouth: Present: Moist Mucous Membranes Neck: Present: Normal Range of Motion Respiratory/Chest: Present: Clear to Auscultation, Good Air Exchange. No: Respiratory Distress, Accessory Muscle Use Cardiovascular: Present: Regular Rate and Rhythm, Normal S1, S2. No: Murmurs Abdomen: Present: Normal Bowel Sounds. No: Tenderness, Distention, Peritoneal Signs Back: Present: Normal Inspection Upper Extremity: Present: Normal Inspection. No: Cyanosis, Edema Lower Extremity: Present: Normal Inspection. No: Edema Neurological: Present: GCS=15, CN II-XII Intact, Speech Normal Skin: Present: Warm, Dry, Normal Color. No: Rashes Psychiatric: Present: Alert, Oriented x 3, Normal Insight, Normal Concentration Medical Decision Making ED Course and Treatment: 02/02/18 22:25 Impression: 67 year presents to the emergency department complaining of palpitations prior to arrival. Plan: -- EKG -- Chest X-ray -- Oxygen Therapy -- Reassess and disposition Progress Notes: Xray reviewed, shows negative results. EKG reviewed, shows Sinus Tachycardia at 101 bpm. NST/T Wave changes. pt feels better will dc to follow up with pmd 02/03/18 03:33 - Lab Interpretations Lab Results: 02/02/18 20:20 02/02/18 20:20 Lab Results 02/02/18 20:20: Sodium 137, Potassium 4.3, Chloride 103, Carbon Dioxide 21, Anion Gap 18, BUN 21, Creatinine 0.9, Est GFR ( Amer) > 60, Est GFR (Non- Af Amer) > 60, Random Glucose 159 H, Calcium 10.0, Total Bilirubin 0.7, AST 38, ALT 41, Alkaline Phosphatase 78, Lactate Dehydrogenase 531, Total Creatine Kinase 99, Troponin I < 0.01, Total Protein 8.1, Albumin 4.6, Globulin 3.5, Albumin/Globulin Ratio 1.3 02/02/18 20:20: WBC 7.1 D, RBC 6.03, Hgb 17.7 D, Hct 52.2 H, MCV 86.6, MCH 29.4, MCHC 33.9, RDW 14.6 H, Plt Count 197, MPV 10.4, Gran % 85.2 H, Lymph % ( Auto) 12.9 L, Calloway % (Auto) 1.8, Eos % (Auto) 0.0 L, Baso % (Auto) 0.1, Gran # 6.03, Lymph # (Auto) 0.9 L, Calloway # (Auto) 0.1, Eos # (Auto) 0.0, Baso # (Auto) 0.01 - RAD Interpretation Radiology Orders: 02/02/18 20:21 CHEST PORTABLE [RAD] Stat - Scribe Statement The provider has reviewed the documentation as recorded by the Scribe Documented by Sweta Mittal acting as a scribe for Markus Hicks MD. Disposition/Present on Arrival - Present on Arrival Any Indicators Present on Arrival: No History of DVT/PE: No History of Uncontrolled Diabetes: No Urinary Catheter: No History of Decub. Ulcer: No History Surgical Site Infection Following: None - Disposition Have Diagnosis and Disposition been Completed?: Yes Diagnosis: Palpitations Disposition: HOME/ ROUTINE Disposition Time: 22:30 Condition: GOOD Discharge Instructions (ExitCare): Palpitations (DC) Referrals: Anabelle Cash, [Primary Care Provider] - Follow up with primary Forms: [employer] (Lebanese)
[2018-02-02 22:54] VITALS: BP 131/89; PULSE 89
--- NOTE | 2018-02-03 08:35 | RAD ---
HISTORY: palpitations COMPARISON: 01/04/2018 FINDINGS: LUNGS: No active pulmonary disease. PLEURA: No significant pleural effusion identified, no pneumothorax apparent. CARDIOVASCULAR: Normal. OSSEOUS STRUCTURES: No significant abnormalities. VISUALIZED UPPER ABDOMEN: Normal. OTHER FINDINGS: None. IMPRESSION: No active disease.
--- NOTE | 2018-02-03 15:46 | CARD ---
APPROVED REPORT EKG Measurement Heart [id number] <Conclusion> Sinus tachycardia PRWP Possible Lateral infarct, age undetermined Inferior infarct, age undetermined Prolonged QTc
== END 2018-02-02 22:28 | disposition home or self-care (01) ==
LOC: ED 19:57
DX: R00.2 Palpitations (principal); I10 Essential (primary) hypertension; I25.10 Atherosclerotic heart disease of native coronary artery without angina pectoris; E78.5 Hyperlipidemia, unspecified; Z95.5 Presence of coronary angioplasty implant and graft

== ENCOUNTER 2018-11-27 05:31 | Inpatient (IN) | payer MEDICARE ==
[2018-11-27 05:32] VITALS: BMI 35.5
--- NOTE | 2018-11-27 05:49 | ED PDOC ---
Arrival/HPI - General Time Seen by Provider: 11/27/18 05:39 Historian: Patient - History of Present Illness Narrative History of Present Illness (Text): 11/27/18 05:46 Moises Alanis is a 68 year old male, whose past medical history includes nephrolithiasis, hypertension, hyperlipidemia, and CAD with 2 stents, who presents to the Emergency department complaining of lower back pain and dysuria tonight. Patient notes he was recently seen by his urologist 2 days ago for a routine visit, which was unremarkable. Patient also reports a subjective fever. Patient denies any fever, chills, chest pain, shortness of breath, nausea, vomiting, diarrhea, neck pain, headache, dizziness, or any other complaints. Symptom Onset: Gradual Symptom Course: Unchanged Activities at Onset: Light Context: Home Past Medical History - Provider Review Nursing Documentation Reviewed: Yes - Infectious Disease Hx of Infectious Diseases: None - Cardiac Hx Hypertension: Yes - Pulmonary Hx Respiratory Disorders: No - Neurological Hx Neurological Disorder: No - HEENT Hx HEENT Disorder: Yes Hx Cataracts: Yes (SX) Other/Comment: history of bilateral corneal transplants 2007. glasses - Renal Hx Renal Disorder: Yes (RENAL CYSTS,HYDRONEPHROSIS) Hx Kidney Stones: Yes (2009) - Endocrine/Metabolic Hx Endocrine Disorders: No - Hematological/Oncological Hx Blood Disorders: No - Integumentary Hx Dermatological Disorder: No - Musculoskeletal/Rheumatological Hx Musculoskeletal Disorders: No Hx Arthritis: Yes - Gastrointestinal Hx Gastrointestinal Disorders: Yes (INGUINAL HERNIA REPAIR,UMBILICAL HERNIA) - Genitourinary/Gynecological Hx Genitourinary Disorders: Yes (UTI 06/25/15,07-15-) Hx Hematuria: Yes Hx Prostate Problems: Yes (ENLARGED) Hx Urinary Tract Infection: Yes - Psychiatric Hx Psychophysiologic Disorder: No Hx Emotional Abuse: No Hx Physical Abuse: No Hx Substance Use: No - Surgical History Hx Coronary Stent: Yes (x3 stents) - Anesthesia Hx Anesthesia: Yes Hx Anesthesia Reactions: No Hx Malignant Hyperthermia: No - Suicidal Assessment Feels Threatened In Home Enviroment: No Family/Social History - Physician Review Nursing Documentation Reviewed: Yes Family/Social History: Unknown Family HX Smoking Status: Never Smoked Hx Alcohol Use: No Hx Substance Use: No Allergies/Home Meds Allergies/Adverse Reactions: Allergies shellfish derived Allergy (Intermediate, Verified 01/04/18 06:56) GENERALIZED RASH Home Medications: Home Meds Medication Instructions Recorded Confirmed Aspirin [Aspirin Chewable] 81 mg PO QAM 08/21/16 11/27/18 Atorvastatin [Lipitor] 20 mg PO QPM 08/21/16 11/27/18 Clopidogrel [Plavix] 75 mg PO QAM 08/21/16 11/27/18 Losartan [Cozaar] 25 mg PO QAM 08/21/16 11/27/18 Metoprolol Tartrate 25 mg PO QAM 08/21/16 11/27/18 [id number] Ethyl Esters 1 GM 3 gm PO BID 08/21/16 11/27/18 [Lovaza] Review of Systems - Physician Review All systems were reviewed & negative as marked: Yes - Review of Systems Constitutional: Normal. absent: Fevers Eyes: Normal ENT: Normal Respiratory: Normal. absent: SOB, Cough Cardiovascular: Normal. absent: Chest Pain Gastrointestinal: Normal. absent: Abdominal Pain, Diarrhea, Nausea, Vomiting Genitourinary Male: Dysuria. absent: Frequency, Hematuria, Urinary Output Changes Musculoskeletal: Back Pain. absent: Neck Pain Skin: Normal. absent: Rash Neurological: Normal. absent: Headache, Dizziness Endocrine: Normal Hemo/Lymphatic: Normal Psychiatric: Normal Physical Exam Vital Signs Reviewed: Yes Temperature: Afebrile Blood Pressure: Normal Pulse: Regular Respiratory Rate: Normal Appearance: Positive for: Well-Appearing, Non-Toxic, Comfortable Pain Distress: None Mental Status: Positive for: Alert and Oriented X 3 - Systems Exam Head: Present: Atraumatic, Normocephalic Pupils: Present: PERRL Extroacular Muscles: Present: EOMI Conjunctiva: Present: Normal Mouth: Present: Moist Mucous Membranes Neck: Present: Normal Range of Motion Respiratory/Chest: Present: Clear to Auscultation, Good Air Exchange. No: Respiratory Distress, Accessory Muscle Use Cardiovascular: Present: Regular Rate and Rhythm, Normal S1, S2. No: Murmurs Abdomen: No: Tenderness, Distention, Peritoneal Signs Back: Present: Normal Inspection Upper Extremity: Present: Normal Inspection. No: Cyanosis, Edema Lower Extremity: Present: Normal Inspection. No: Edema Neurological: Present: GCS=15, CN II-XII Intact, Speech Normal Skin: Present: Warm, Dry, Normal Color. No: Rashes Psychiatric: Present: Alert, Oriented x 3, Normal Insight, Normal Concentration Medical Decision Making ED Course and Treatment: 11/27/18 05:46 Impression: 68 year old male complaining of lower back pain and dysuria. Plan: -- Labs -- Urinalysis, urine cultures -- IV fluids -- Morphine -- Reassess and disposition Progress Notes: 11/27/18 07:02 Case endorsed to /pending labs/CT abd/Pelvis/reassess/final disposition - Scribe Statement The provider has reviewed the documentation as recorded by the Winsome Brown Provider Scribe Attestation: All medical record entries made by the Cathyibjone were at my direction and personally dictated by me. I have reviewed the chart and agree that the record accurately reflects my personal performance of the history, physical exam, medical decision making, and the department course for this patient. I have also personally directed, reviewed, and agree with the discharge instructions and disposition. Disposition/Present on Arrival - Present on Arrival Any Indicators Present on Arrival: No History of DVT/PE: No History of Uncontrolled Diabetes: No Urinary Catheter: No History Surgical Site Infection Following: None - Disposition Have Diagnosis and Disposition been Completed?: No Diagnosis: Back pain, Dysuria Disposition Time: 07:00 Condition: STABLE
[2018-11-27] MEDS ORDERED: Morphine 2 mg/ml ISec IVP STA (05:58)
[2018-11-27] MEDS ORDERED: Sodium Chloride 0.9% 1,000 ML IV STA (05:58)
[2018-11-27 06:31] LABS: ALB/GLOB RATIO 1.4 (1.1-1.8); ALBUMIN 4.6 g/dL (3.0-4.8); ALT/SGPT 41 U/L (7-56); AST/SGOT 31 U/L (17-59); BLOOD UREA NITROGEN 13 mg/dL (7-21); CALCIUM 9.3 mg/dL (8.4-10.5); GFR NON-AFRICAN AMERICAN > 60
[2018-11-27 06:40] LABS: URINE BILIRUBIN NEGATIVE (NEGATIVE); URINE BLOOD MODERATE (NEGATIVE); URINE GLUCOSE (UA) NEGATIVE (NEGATIVE); URINE LEUKOCYTE ESTERASE MODERATE Leu/uL (NEGATIVE); URINE PROTEIN NEGATIVE mg/dL (<30 mg/dL); URINE UROBILINOGEN 0.2 E.U./dL (<1 E.U./dL)
[2018-11-27 06:41] LABS: HEMOGLOBIN 16.9 g/dL (14.0-18.0); MEAN CELL VOLUME 86.5 fl (80.0-105.0); MEAN CORPUSCULAR HEMOGLOBIN 29.3 pg (25.0-35.0); MEAN CORPUSCULAR HGB CONC 33.9 g/dl (31.0-37.0); MEAN PLATELET VOLUME 9.4 fl (7.0-11.0); RBC 5.76 10^6/uL (3.5-6.1); RED CELL DISTRIBUTION WIDTH 14.4 % (11.5-14.5); WHITE BLOOD COUNT 15.8 10^3/uL (4.5-11.0)
[2018-11-27 06:45] LABS: URINE APPEARANCE SL CLOUDY (CLEAR); URINE COLOR YELLOW (YELLOW)
[2018-11-27 07:02] LABS: URINE BACTERIA MOD /hpf
--- NOTE | 2018-11-27 07:06 | ED PDOC ---
Physical Exam Vital Signs Reviewed: Yes Vital Signs Temp Pulse Resp BP Pulse Ox 11/27/18 05:46 98 F 108 H 18 135/84 96 Temperature: Afebrile Blood Pressure: Normal Pulse: Tachycardic Respiratory Rate: Normal Medical Decision Making ED Course and Treatment: 11/27/18 07:06 Patient endorsed to me by Dr. Vázquez. Patient is a 68 year old male presenting with lower back pain and dysuria. Pending CT results. 11/27/18 08:54 Procedure: CT of ABdomen and Pelvis Time: Nov 27, 2018 7:48:38 AM Dictator: Dr. Tamika Jain M.D. Impression: Prostatomegaly. Thickened bladder. Under distention, chronic bladder outlet obstruction versus mild cystitis. Mild left hydronephrosis with normal caliber of the left ureter. 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 Correlation with urinalysis is suggested. Patient with tachycardia, leukocytosis, subjective fever yesterday, with UTI and hydronephrosis, requires admission. Dr. Ibarra covered by Dr. Greenwood covered by Dr. Ruiz accepts patient to her service. - Lab Interpretations Lab Results: 11/27/18 06:00 11/27/18 06:00 Lab Results 11/27/18 06:00: WBC 15.8 H, RBC 5.76, Hgb 16.9, Hct 49.8, MCV 86.5, MCH 29.3, MCHC 33.9, RDW 14.4, Plt Count 192, MPV 9.4 11/27/18 06:00: Sodium 135, Potassium 4.3, Chloride 100, Carbon Dioxide 27, Anion Gap 12, BUN 13, Creatinine 0.9, Est GFR ( Amer) > 60, Est GFR (Non- Af Amer) > 60, Random Glucose 131 H, Calcium 9.3, Total Bilirubin 1.3, AST 31, ALT 41, Alkaline Phosphatase 60, Total Protein 7.8, Albumin 4.6, Globulin 3.2, A lbumin/Globulin Ratio 1.4 11/27/18 06:00: Urine Color Yellow, Urine Appearance Sl cloudy, Urine pH 7.0, Ur Specific [place] 1.015, Urine Protein Negative, Urine Glucose (UA) Negative, Urine Ketones Negative, Urine Blood Moderate H, Urine Nitrate Negative, Urine Bilirubin Negative, Urine Urobilinogen 0.2, Ur Leukocyte Esterase Moderate H, Urine RBC 10 - 15 H, Urine WBC 10 - 15 H, Ur Epithelial Cells 1 - 3, Urine Bacteria Mod - RAD Interpretation Radiology Orders: 11/27/18 06:28 ABD & PELVIS W/O PO OR IV CONT [CT] Stat - Medication Orders Current Medication Orders: Discontinued Medications Sodium Chloride (Sodium Chloride 0.9%) 1,000 mls @ 999 mls/hr IV .Q1H1M STA Stop: 11/27/18 06:58 Last Admin: 11/27/18 06:00 Dose: 999 mls/hr eMAR Start Stop Document 11/27/18 06:00 RD (Rec: 11/27/18 06:18 RD [facility] [place]) Intravenous Solution Start Date 11/27/18 Start Time 06:00 End Date 11/27/18 End time 07:00 Total Infusion Time 60 Morphine Sulfate (Morphine) 2 mg IVP STAT STA Stop: 11/27/18 05:59 Last Admin: 11/27/18 06:18 Dose: 2 mg MAR Pain Assessment Document 11/27/18 06:18 RD (Rec: 11/27/18 06:18 RD [facility] [id number]) Pain Reassessment Is this a pain reassessment? No Sleep Is patient sleeping during reassessment? No Presence of Pain Presence of Pain Yes IVP Administration Document 11/27/18 06:18 RD (Rec: 11/27/18 06:18 RD [facility] [id number]) Charges for Administration # of IVP Administrations 1 Disposition/Present on Arrival - Present on Arrival Any Indicators Present on Arrival: No History of DVT/PE: No History of Uncontrolled Diabetes: No Urinary Catheter: No History of Decub. Ulcer: No History Surgical Site Infection Following: None - Disposition Have Diagnosis and Disposition been Completed?: Yes Diagnosis: Dysuria, Urinary tract infection, Leukocytosis, Hydronephrosis Disposition: HOSPITALIZED Disposition Time: 08:55 Patient Plan: Admission Patient Problems: Current Active Problems Problem Status Onset Back pain Acute Dysuria Acute Condition: FAIR
--- NOTE | 2018-11-27 09:11 | CT ---
Date of service: 11/27/2018 PROCEDURE: CT Abdomen and Pelvis without intravenous contrast HISTORY: back pain/dysuria COMPARISON: None. TECHNIQUE: Without contrast.. Contrast dose: Radiation dose: Total exam DLP = 1168.75 mGy-cm. This CT exam was performed using one or more of the following dose reduction techniques: Automated exposure control, adjustment of the mA and/or kV according to patient size, and/or use of iterative reconstruction technique. FINDINGS: LOWER THORAX: Unremarkable. LIVER: Unremarkable. No gross lesion or ductal dilatation. GALLBLADDER AND BILE DUCTS: Unremarkable. PANCREAS: Unremarkable. No gross lesion or ductal dilatation. SPLEEN: Unremarkable. ADRENALS: Unremarkable. No mass. 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 VASCULATURE: Unremarkable. No aortic aneurysm. Aortic calcifications BOWEL: Unremarkable. No obstruction. No gross mural thickening. APPENDIX: Unremarkable. Normal appendix. PERITONEUM: Unremarkable. No free fluid. No free air. LYMPH NODES: Unremarkable. No enlarged lymph nodes. BLADDER: Unremarkable. REPRODUCTIVE: The prostate is enlarged measuring 63 x 62 mm transversely BONES: No acute fracture. OTHER FINDINGS: None. IMPRESSION: Enlarged prostate. No acute findings. No evidence of ureteral stone
[2018-11-27] MEDS ORDERED: levoFLOXacin 750 mg in D5W 750 MG/150 ML BAG IVPB STA (10:16)
[2018-11-27] MEDS ORDERED: Pneumococcal 23-Valent Vaccine IM ONE (15:08)
[2018-11-27] MEDS ORDERED: Influenza Vaccine 60 mcg/0.5 mL SYR (4YR UP) IM ONE (15:08)
--- NOTE | 2018-11-27 21:02 | HP ---
DATE OF EXAM: 11/27/2018 HISTORY OF PRESENT ILLNESS: Patient is 68 years old, patient of states he has been having some flank pain, he went to see the other day when in home he started to have lower back pain and some urinary discomfort started to have fever, did not feel well, so came to emergency room for further evaluation. Denies any nausea or vomiting. PAST MEDICAL HISTORY: Significant for; 1. Hypertension. 2. Coronary artery disease status post angioplasty. 3. Hypertension. 4. Hyperlipidemia. 5. History of bilateral corneal transplant. 6. History of nephrolithiasis. 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 MEDICATIONS: At home; he is on omega 3 fish oil, he is on metoprolol 25 mg daily, losartan 25 mg daily, Plavix 75 mg daily, Lipitor 20 mg daily, and aspirin 81 mg daily. 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 Denies smoking, drinking or alcohol use. PHYSICAL EXAMINATION: GENERAL: He is awake, alert and oriented. By the time I saw the patient, he is comfortable. VITAL SIGNS: Afebrile, pulse 97, respirations 20, and blood pressure 132/74. LUNGS: Bilateral fair airflow. No rhonchi or crackle. HEART: S1 and S1 audible. ABDOMEN: Soft and nontender. He has lower back pain, but no rebound, no guarding. NEUROLOGIC: He is awake, alert, oriented and communicative. LABORATORY DATA: WBC is 15.8, hemoglobin 16.9, hematocrit 49.8, and platelets 192. Chemistries; sodium 135, potassium 4.3, chloride 100, CO2 of 27, BUN 13, creatinine 0.9, and blood sugar of 131. Urine analysis shows moderate blood and moderate leucocyte, rbc is 10-15, wbc is 7-15. A CT scan of the abdomen and pelvis was done that shows prostate is enlarged and otherwise no hydronephrosis. ASSESSMENT AND PLAN: 1. Renal colic. 2. Pyelonephritis. 3. Leukocytosis. 4. Coronary artery disease status post multiple angioplasties. 5. Hypertension. 6. Hyperlipidemia. The plan is currently patient is on IV fluid, continue him on aspirin, losartan. We will give him Rocephin, monitor his CBC, CMP. has been consulted. Followup electrolyte in a.m. Juwan Farah MD
[2018-11-27] MEDS: Dextrose 5%/0.45% NS 1,000 ML IV SCH (22:00)
[2018-11-28] MEDS: Dextrose 5%/0.45% NS 1,000 ML IV SCH ×3 (06:12→22:12)
[2018-11-28 07:58] LABS: BASO # 0.02 K/mm3 (0.0-2.0); BASO % 0.1 % (0.0-3.0); EOS % 0.2 % (1.5-5.0); GRAN # 15.25 (1.4-6.5); GRAN % 84.5 % (50.0-68.0); HEMOGLOBIN 14.9 g/dL (14.0-18.0); LYMPH # 1.5 (1.2-3.4); LYMPH % 8.2 % (22.0-35.0); MEAN CELL VOLUME 86.4 fl (80.0-105.0); MEAN CORPUSCULAR HEMOGLOBIN 28.9 pg (25.0-35.0); MEAN CORPUSCULAR HGB CONC 33.4 g/dl (31.0-37.0); MEAN PLATELET VOLUME 9.6 fl (7.0-11.0); MONO # 1.3 (0.1-0.6); RBC 5.16 10^6/uL (3.5-6.1); RED CELL DISTRIBUTION WIDTH 14.5 % (11.5-14.5); WHITE BLOOD COUNT 18.1 10^3/uL (4.5-11.0)
[2018-11-28 08:26] LABS: ALB/GLOB RATIO 1.3 (1.1-1.8); ALBUMIN 3.6 g/dL (3.0-4.8); ALT/SGPT 28 U/L (7-56); AST/SGOT 18 U/L (17-59); BLOOD UREA NITROGEN 8 mg/dL (7-21); CALCIUM 8.4 mg/dL (8.4-10.5); GFR NON-AFRICAN AMERICAN > 60
[2018-11-28] MEDS: cefTRIAXone 1 gm 1 GM/100 ML BAG IVPB SCH (10:30)
--- NOTE | 2018-11-28 20:31 | PN ---
DATE: 11/28/2018 SUBJECTIVE: The patient is 68-year-old, seen and examined. He states he feels better than yesterday. He still has right flank discomfort. No fever or chills. No nausea, vomiting or diarrhea, eating and tolerating. PHYSICAL EXAMINATION: VITAL SIGNS: He has temperature 99.7, pulse 75, respirations 20, and blood pressure 119/71. LUNGS: Bilateral fair airflow. No rhonchi or crackle. HEART: S1 and S2 audible. ABDOMEN: Soft, obese, nontender. No rebound. No guarding. NEUROLOGICAL: He is awake, alert, oriented, and communicative. LABORATORY DATA: WBC is 18.1, hemoglobin 14, hematocrit 44, and platelets 173. Chemistry: Sodium 137, potassium 3.6, chloride 103, CO2 of 26, BUN 8, creatinine 0.9, and blood sugar of 120. Urine shows gram-negative juana. CT scan of the abdomen and pelvis is unremarkable. ASSESSMENT: 1. History of nephrolithiasis. 2. Pyelonephritis. 3. Coronary artery disease, status post angioplasty. 4. Hypertension. 5. Hyperlipidemia. PLAN: Currently, the patient is on Rocephin. We will resume his usual medication. Continue IV fluid. Awaiting culture and sensitivity. Awaiting Urology input. We will order for CBC and CMP in a.m. If it is trending down and sensitivity is available by morning and he remains afebrile, might be switched to p.o. antibiotics and sent home in a.m. Moody Ruiz MD
[2018-11-28 23:14] VITALS: TEMP 99.1
[2018-11-29 07:20] LABS: BASO # 0.01 K/mm3 (0.0-2.0); BASO % 0.1 % (0.0-3.0); EOS # 0.2 (0.0-0.7); EOS % 1.3 % (1.5-5.0); GRAN # 8.72 (1.4-6.5); GRAN % 76.3 % (50.0-68.0); HEMOGLOBIN 14.9 g/dL (14.0-18.0); LYMPH # 1.8 (1.2-3.4); LYMPH % 15.5 % (22.0-35.0); MEAN CELL VOLUME 86.3 fl (80.0-105.0); MEAN CORPUSCULAR HEMOGLOBIN 28.8 pg (25.0-35.0); MEAN CORPUSCULAR HGB CONC 33.4 g/dl (31.0-37.0); MEAN PLATELET VOLUME 9.7 fl (7.0-11.0); MONO # 0.8 (0.1-0.6); MONO % 6.8 % (1.0-6.0); RBC 5.17 10^6/uL (3.5-6.1); RED CELL DISTRIBUTION WIDTH 14.6 % (11.5-14.5); WHITE BLOOD COUNT 11.4 10^3/uL (4.5-11.0)
[2018-11-29 08:55] VITALS: BP 109/71; PULSE 75; RESP 20; O2SAT 98
[2018-11-29 09:01] LABS: ALB/GLOB RATIO 1.2 (1.1-1.8); ALBUMIN 3.7 g/dL (3.0-4.8); ALT/SGPT 27 U/L (7-56); AST/SGOT 18 U/L (17-59); BLOOD UREA NITROGEN 9 mg/dL (7-21); CALCIUM 8.6 mg/dL (8.4-10.5); GFR NON-AFRICAN AMERICAN > 60
[2018-11-29] MEDS: cefTRIAXone 1 gm 1 GM/100 ML BAG IVPB SCH (10:19)
--- NOTE | 2018-11-29 16:21 | CON ---
DATE: 11/29/2018 GENITOURINARY CONSULTATION CHIEF COMPLAINT: Dysuria and low back pain. HISTORY OF PRESENT ILLNESS: This is a 68-year-old male, who is known to me from the office. The patient has a history of urinary tract infections and prostatitis in the past as well as renal cysts. He was recently seen in my office. He has been voiding well after a prostatic needle ablation years ago. On recent visit, he had no urinary symptoms and his urine was clear. A few days after his office visit, the patient reports he woke up in the morning and had dysuria on his first a.m. void, this progressed and the patient developed frequency, urgency, and then began having low back pain. He reports having fevers, although none were noted at the hospital initially, but he did have an elevated white count and urine appeared infected. The patient was then admitted for possible renal colic, possible sepsis, and urinary infection. A consultation was then requested regarding the above. PAST MEDICAL HISTORY: Significant for urinary tract infection, BPH with obstruction, hypertension, coronary artery disease, hyperlipidemia, corneal transplants, history of nephrolithiasis in the past. MEDICATIONS AT HOME: Include fish oil, metoprolol, losartan, Plavix, Lipitor, and aspirin. Currently on Rocephin 1 g daily. ALLERGIES: NO KNOWN DRUG ALLERGIES. FAMILY HISTORY: Noncontributory for this admission. SOCIAL HISTORY: No smoking or EtOH use. REVIEW OF SYSTEMS: Twelve-point review of systems was obtained. Positives for the system as per the history of present illness. Denies any current chest pain or palpitations. Denies any cough or shortness of breath. For musculoskeletal, does report low back pain, which is now improved and some mild joint pains. All other systems are negative. PHYSICAL EXAMINATION: GENERAL: The patient is awake and alert, answering questions. He is in no acute distress. VITAL SIGNS: He is currently afebrile, temperature of 99.1, pulse of 75, BP 109/71, respirations 16. NECK: His neck is supple. There is no adenopathy noted. CHEST: Exam of the chest revealed a normal inspiratory effort. CARDIAC: Exam shows positive S1, S2. There is no peripheral edema noted. ABDOMEN: On abdominal exam, the abdomen is obese, soft, nontender, nondistended. There is no hepatosplenomegaly. There is no costovertebral angle tenderness. GENITOURINARY: On exam, phallus is normal. Scrotum is normal. Testes bilaterally descended, nontender. No masses. Epididymides are normal. EXTREMITIES: There is no cyanosis, clubbing or edema. LABORATORY DATA: On laboratory exam, WBC count down to 11.4 from 18 yesterday. Creatinine 0.9 with a GFR greater than 60. Urinalysis showed 10-15 rbc's, 10-15 wbc's, nitrites were negative. Urine culture was positive for E. Coli, greater than 100,000 colonies per mL. E. Coli is sensitive to Rocephin. Blood cultures apparently were not done. The patient had a PSA done this morning, which was 13.1. On radiologic exam, the patient had a CT scan of the abdomen and pelvis, which showed enlarged prostate gland measuring 63 x 62 mm. Kidneys showed a mildly dilated left renal collecting system consistent with congenital UPJ obstruction. IMPRESSION AND PLAN: This is a 68-year-old male with a history of benign prostatic hypertrophy and recurrent urinary tract infections, who appears to have a cystitis, possibly a prostatitis. The plan will be to continue IV antibiotics and follow his WBC count to make sure the patient is not developing a fever. Plan would be if the patient continues to improve, to switch him to oral antibiotics, which the urinary infection is sensitive to, and the patient can then be discharged home when he is medically stable. He will follow up in my office in a few weeks to recheck his urine and repeat his PSA. As for the mild dilatation in his kidney, on review of prior films, he was noted to have renal cysts, but no prior dilation, maybe the patient did pass a small calculus. No current ureteral or renal calculi are noted on the CT scan. I would plan on a repeat renal ultrasound in a few days to make sure that the fullness has resolved. He has no evidence of bladder distention and reports his voiding has improved with the antibiotics. Thank you for allowing me to participate in the care of this patient. We will follow him with you. New Valencia MD
--- NOTE | 2018-11-29 21:20 | DS ---
HISTORY OF PRESENT ILLNESS: This is a 68-year-old male who had coming to the hospital complaining of dysuria. He had a CT of the abdomen and pelvis, that showed enlarged prostate. He was diagnosed with acute prostatitis. He had elevated PSA. He was placed on IV antibiotics and improved in the symptoms. He had a urine culture that showed Escherichia coli that was sensitive to ciprofloxacin. He was discharged on ciprofloxacin for 3 weeks and was advised to follow with Dr. Valencia as an outpatient for Urology. His fasting PSA was 13.1. He currently sats well. He has no complaints. There is no history of frequency and no headaches or dizziness. PHYSICAL EXAMINATION: VITAL SIGNS: Temperature is 99.1, pulse of 75, blood pressure is 109/71, respirations 20, O2 saturation is 98%. GENERAL: The patient is lying in bed, flat, comfortable. HEENT: No JVD, adenopathy, or thyromegaly. CARDIOVASCULAR: S1 and S2, regular. No murmurs, rubs, or gallops. LUNGS: Clear to auscultation bilaterally. No wheeze, rales, or rhonchi. ABDOMEN: Bowel sounds are positive, soft, nontender and nondistended. EXTREMITIES: No cyanosis, clubbing or edema. ASSESSMENT: 1. Acute prostatitis. 2. Coronary artery disease. 3. Hypertension. 4. Dyslipidemia. 5. . PLAN: 1. The patient is currently comfortable. He is to follow up with Dr. Valencia as an outpatient. He has no complaints of any headaches or dizziness. No nausea. No vomiting. He is on Rocephin, this is going to be discontinued at this point and he will be on p.o. ciprofloxacin for 3 weeks. Condition was stable after and he tolerated. He will continue some of his medications, Lipitor, losartan, aspirin, and Plavix. Followup with Dr. Valencia once in 2 weeks. 2. Follow up with his primary care DrAdrien in 1 to 2 weeks. Wade Greenwood MD
== END 2018-11-29 14:12 | disposition home or self-care (01) | DRG 690 ==
LOC: ED 05:31 → ERH 10:34 → 5RNO 13:14
PROVIDERS: ADMIT Internal Medicine; ATTEND Internal Medicine Nephrology
DX: N13.6 Pyonephrosis (principal); N41.0 Acute prostatitis; I25.10 Atherosclerotic heart disease of native coronary artery without angina pectoris; I10 Essential (primary) hypertension; M54.5 Low back pain; Z87.442 Personal history of urinary calculi; N23 Unspecified renal colic; E78.5 Hyperlipidemia, unspecified; N40.1 Benign prostatic hyperplasia with lower urinary tract symptoms; Z79.02 Long term (current) use of antithrombotics/antiplatelets; Z87.440 Personal history of urinary (tract) infections; Z94.7 Corneal transplant status; Z95.5 Presence of coronary angioplasty implant and graft; B96.20 Unspecified Escherichia coli [E. coli] as the cause of diseases classified elsewhere